=== PATIENT | female | born 1955 | race Caucasian/White ===

== ENCOUNTER 2017-11-19 11:59 | Inpatient (IN) ==
[2017-11-19] MEDS ORDERED: Naloxone 0.4 MG/ML INJ IVP PRN (16:31)
[2017-11-19] MEDS ORDERED: Nitroglycerin 0.4 MG TAB.SUBL SL SCH (16:32)
[2017-11-19] MEDS ORDERED: *HR* Heparin 5,000 UNIT/ML VIAL IVP PRN (16:35)
[2017-11-19] MEDS ORDERED: Heparin 25,000 UNIT/500 ML D5W 25,000 UNIT/500 ML BAG IVC SCH (16:45)
[2017-11-19 17:21] LABS: Hematocrit 39.9 % (35.3-44.9); Hemoglobin 13.5 g/dL (11.5-15.4); Mean Corpuscular HGB Conc 33.8 g/dL (31.6-35.5); Mean Corpuscular Hemoglobin 29.5 pg (28.0-33.3); Mean Corpuscular Volume 87.3 fL (83.0-100.0); Mean Platelet Volume 11.1 fL (9.4-12.4); Platelet Count 278 K/mcL (140-400); Red Blood Count 4.57 M/mcL (3.82-4.97); Red Cell Distribution Width 13.6 % (11.5-14.5)
[2017-11-19 17:41] LABS: Heparin anti-factor XA UFH 0.17 IU/mL (0.30-0.70); INR 0.9; Prothrombin Time 9.6 Seconds (9.4-12.1)
[2017-11-19] MEDS ORDERED: Isovue-370 500 ML INFUS..BTL IV ONE (17:45)
[2017-11-19] MEDS ORDERED: D5% in Water 1,000 ML IVC PRN (17:49)
[2017-11-19] MEDS ORDERED: Dextrose Gel 15 GM/37.5 ML TUBE PO PRN ×2 (17:49)
[2017-11-19] MEDS ORDERED: *HR* Dextrose 50 % in Water (Syg) 50 ML SYRINGE IVP PRN (17:49)
[2017-11-19] MEDS ORDERED: Nitroglycerin 0.4 MG TAB.SUBL SL PRN (17:50)
[2017-11-19] MEDS: *HR* Heparin 5,000 UNIT/ML VIAL IVP PRN (18:54)
[2017-11-19] MEDS ORDERED: Nitroglycerin 25 MG/250 ML INFUS..BTL IVC SCH (19:15)
--- NOTE | 2017-11-19 20:06 | Internal Med History&Physical ---
Date of Encounter: 11/19/17 Time of Encounter: 17:30 Internal Medicine - H&P: HPI Chief complaint: Chest pain Admitted From: Hospital to Hospital Transfer Plans for Post Hospital Care: Home History of present illness: Ms. Lacey is a 62 year old female with hx of CAD transferred from [facility] due to chest pain with elevated troponin. Ms Lacey stated she developed tongue numbness and tingling this AM in the shower. She then noted neck pain that went into her shoulder and then to her left arm. She took two nitro with some relief. She had no nausea but said her face was flushed. No dyspnea now but has been having MAHONEY. She also has been swelling and has had weight gain. At the present time she still has some residual pain in her L shoulder area. No dyspnea. She also reports some upper extremity and face swelling and relates that she has a hx of "tumor" in chest. Past Med Surg Social Fam HX - Past Medical History Source: patient Medical history: coronary artery disease, diabetes, hyperlipidemia Additional medical history: htn. cad. hld. gerd. type 2 dm. ventral incisional hernia. morbid obesity Psychiatric history: no psych history - Past Surgical History Surgical History: angioplasty/stent, other Additional surgical history: 3 cardiac stents - Social History Smoking Status: Never smoker Smokeless Tobacco Status: No Alcohol use: none Drug use: none - Family History Mother Living Status: Age at : 73 Hx Family Cardiac Disorders: Yes (Angina, HTN, CVA) Hx Family Endocrine Disorder: Yes (Diabetes) Father Living Status: Age at : 70 Hx Family Cardiac Disorders: Yes (OH, HTN, HLD, OH at 42, 58,70) Internal Medicine - H&P: Meds Acetaminophen [Tylenol] 650 mg PO Q6HR PRN 06/12/17 [History] Albuterol Sulfate [Albuterol Inhaler] 2 puff IH DAILY PRN 06/12/17 [History] Atorvastatin Calcium [Lipitor] 20 mg PO HS 06/12/17 [History] Biotin 1 mg PO DAILY 06/12/17 [History] Cholecalciferol (D-3) [Vitamin D] 50,000 unit PO MO 06/12/17 [History] Clopidogrel [Plavix] 75 mg PO DAILY 06/12/17 [History] Fluticasone Propionate Nasal [Flonase] 1 spr NS DAILY 06/12/17 [History] Furosemide [Lasix] 20 mg PO DAILY 06/12/17 [History] Glimepiride [Amaryl] 2 mg PO 0800 06/12/17 [History] Loperamide [Imodium] 2 mg PO AD PRN MDD MAX 6 TAB PER 24 HOURS 06/12/17 [History ] Losartan [Cozaar] 25 mg PO DAILY 06/12/17 [History] Metformin HCl [Fortamet] 1,000 mg PO BID 06/12/17 [History] Mometasone/Formoterol [Dulera 100 Mcg/5 Mcg Inhaler] 1 puff IH DAILY 06/12/17 [ History] Nitroglycerin [Nitrostat] 0.4 mg SL Q5-6MIN PRN 06/12/17 [History] [place]-3/Dha/Epa/Fish Oil [Fish Oil 1,000 mg Softgel] 1 cap PO DAILY 06/12/17 [ History] Omeprazole 20 mg PO DAILY 06/12/17 [History] Potassium Chloride [K-Tab ER] 20 meq PO DAILY 06/12/17 [History] Triamterene/Hydrochlorothiazid [Triamterene-Hctz 75-50 mg Tab] 1.5 tab PO DAILY 06/12/17 [History] Ubidecarenone [Coenzyme Q-10] 200 mg PO DAILY 06/12/17 [History] Verapamil HCl [Verelan Pm] 200 mg PO DAILY 06/12/17 [History] Isosorbide MONOnitrate (24 HR) [Imdur] 30 mg PO DAILY 11/19/17 [History] Xyzal 5 mg PO DAILY 11/19/17 [History] 3 Allergy/AdvReac Type Severity Reaction Status Date / Time metoprolol Allergy Difficulty Verified 11/19/17 14:38 Breathing morphine Allergy Swelling Verified 11/19/17 14:38 of Lip/Tongue/Throat propoxyphene [From Darvon] Allergy Itching Verified 11/19/17 14:38 Sulfa (Sulfonamide Allergy Blister Verified 11/19/17 14:38 Antibiotics) adhesive tape AdvReac Itching Verified 06/12/17 09:13 All Systems PM: A 10-system review of systems was performed and is negative for pertinent findings except as documented above in the HPI. - Constitutional Constitutional: as per HPI, fatigue, malaise, weight gain - EENT Eyes: no change in vision, no loss of vision Ears: no decreased hearing Nose, mouth and throat: no dry mouth, no sinus pain - Cardiovascular Cardiovascular ROS IM: chest pain, dyspnea, dyspnea on exertion, edema - Respiratory Respiratory: dyspnea, dyspnea on exertion, no wheezing, no chest congestion - Gastrointestinal Gastrointestinal: no abdominal pain, no diarrhea, no melena, no vomiting - Genitourinary Genitourinary: no dysuria, no nocturia, no urinary urgency - Musculoskeletal Musculoskeletal ROS IM: no joint swelling, no stiffness - Integumentary Integumentary IM: no erythema, no rash - Neurological Neurological ROS: tingling, no focal weakness, no memory loss - Endocrine Endocrine IM: no cold intolerance, no flushing - Hematologic/Lymphatic Hematologic/Lymphatic: no easy bleeding - Allergic/Immunologic Allergic/Immunologic: no throat swelling, no wheezing - Constitutional Vitals: Temp Pulse Resp BP Pulse Ox 97.8 F 84 15 135/85 97 11/19/17 16:02 11/19/17 16:02 11/19/17 16:02 11/19/17 16:02 11/19/17 16:02 General appearance: Present: A&O X 3, pleasant, answers questions appropriately - Head Head exam: Present: normocephalic - Eye Eye exam: Present: EOMI, conjuntiva pink - ENT ENT exam: Present: mucous membranes moist - Neck Neck exam general surgery: Present: normal inspection. Absent: thyromegaly - Respiratory Respiratory exam: Present: CTAB. Absent: rales, rhonchi, wheezes - Cardiovascular Cardiovascular exam: Present: RRR. Absent: tachycardia - GI/Abdominal GI/Abdominal exam: Present: normal bowel sounds, soft. Absent: mass, tenderness - Extremities Exam Extremities exam: Present: pedal edema, tenderness, warm - Neurological Exam Neurological exam: Present: alert, oriented X3, no focal deficits - Psychiatric Psychiatric exam: Present: normal affect, normal mood - Skin Skin exam: Present: dry, warm. Absent: rash Internal Med - H&P Results - Labs CBC & Chem 7: 11/19/17 17:05 Labs: Short CBC 11/19/17 Range/Units 17:05 WBC 12.0 H (4.3-11.1) K/mcL Hgb 13.5 (11.5-15.4) g/dL Hct 39.9 (35.3-44.9) % Plt Count 278 (140-400) K/mcL Cardiac Enzymes 11/19/17 Range/Units 17:05 Troponin I 0.46 H* (< 0.04) ng/mL - Impressions ITS Impressions Chest CTA 11/19/17 17:45 IMPRESSION: No evidence of pulmonary embolism or acute pulmonary abnormality. D/ / Nigel Hollins MD / Nigel Hollins MD Interpreting Provider: Nigel Hollins MD Head CT 11/19/17 17:46 IMPRESSION: No acute intracranial abnormality. D/ / Andrea Wick MD / Andrea Wick MD Interpreting Provider: Andrea Wick MD - VTE Reasons for not Prescribing Prophylaxis: Not indicated-Anticoagulated or INR therapeutic - Assessment and plan (1) NSTEMI (non-ST elevated myocardial infarction) Current Visit: Yes Status: Acute Assessment and plan: Pt with typical chest pain this AM. Prior hx of stents in 2013. Cath in 2016 with 70% lesion. Admit to med tele. IV heparin IV nitro for pain Troponins NPO midnight Cannot take ASA. Currently on plavix Statin Cardiology consult. Pt high risk due to potential for worsening cardiac status. (2) CAD (coronary artery disease) Current Visit: Yes Status: Chronic Assessment and plan: See above Qualifiers: Coronary Disease-Associated Artery/Lesion type: [place] artery [place] vs. transplanted heart: [place] heart Associated angina: with unstable angina Qualified Code(s): I25.110 - Atherosclerotic heart disease of [place] coronary artery with unstable angina pectoris (3) Neuro-endocrine cancer Current Visit: Yes Status: Chronic Assessment and plan: Has hx of neuroendocrine tumor. Not all resected. Follows at [facility]. (4) Hyperlipemia, mixed Current Visit: Yes Status: Chronic Assessment and plan: Check lipids in AM. (5) Diabetes Current Visit: Yes Status: Chronic Assessment and plan: Monitor blood sugars and cover with SSI. Qualifiers: Diabetes mellitus type: type 2 Diabetes mellitus detention insulin use: without terminal clerk use Diabetes mellitus complication status: without complication Qualified Code(s): E11.9 - Type 2 diabetes mellitus without complications - Time Spent With Patient Total time spent is greater than 50% in coordination of care (as documented) at patient's floor/unit and/or counseling patient:
[2017-11-19] MEDS: Insulin LISPRO 300 UNITS/3 ML VIAL SQ SCH (21:22)
[2017-11-19] MEDS: Ipratropium/Albuterol Neb 3 ML IH SCH (22:34)
[2017-11-20 01:12] LABS: Basophils % 0.3 %; Eosinophils % 0.1 %; Hematocrit 37.5 % (35.3-44.9); Hemoglobin 12.5 g/dL (11.5-15.4); Immature Granulocytes % 0.6 % (0-4); Lymphocytes # 1.2 K/mcL (0.6-4.6); Lymphocytes % 12.1 %; Mean Corpuscular HGB Conc 33.3 g/dL (31.6-35.5); Mean Corpuscular Hemoglobin 29.5 pg (28.0-33.3); Mean Corpuscular Volume 88.4 fL (83.0-100.0); Monocytes # 0.5 K/mcL (0.0-1.3); Monocytes % 5.2 %; Neutrophils # 8.2 K/mcL (1.6-8.9); Platelet Count 259 K/mcL (140-400); Red Blood Count 4.24 M/mcL (3.82-4.97); Red Cell Distribution Width 13.8 % (11.5-14.5); Segmented Neutrophils % 81.7 %
[2017-11-20 01:46] LABS: BUN/Creatinine Ratio 22 (6-26); Blood Urea Nitrogen 14 mg/dL (8-23); Calcium 9.7 mg/dL (8.6-10.3); Carbon Dioxide 22 mEq/L (23-29); Chloride 101 mEq/L (98-107); Chol/HDL Ratio 3.6 (0-4.9); Cholesterol 170 mg/dL (< 200); Glucose 168 mg/dL (70-105); HDL Cholesterol 47 mg/dL (40-59); LDL Cholesterol,Calculated 71 mg/dL (0-99); Magnesium 1.7 mg/dL (1.6-2.6); Osmolality,Calculated 286 (280-300); Potassium 3.6 mEq/L (3.5-5.1); Sodium 136 mEq/L (136-145); Triglycerides 262 mg/dL (< 150); eGFR For Non-African Americans > 60 (> 60)
[2017-11-20] MEDS: Ipratropium/Albuterol Neb 3 ML IH SCH ×4 (04:39→22:12)
--- NOTE | 2017-11-20 08:26 | Electrocardiograph Report ---
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
--- NOTE | 2017-11-20 08:58 | Internal Med Progress Note ---
<Todd Gunderson - Last Filed: 11/20/17 17:23> Hospitalist Progress Note - Encounter Date of Encounter: 11/20/17 - Exam Vitals: Temp Pulse Resp BP Pulse Ox 97.9 F 88 16 167/94 98 11/20/17 16:00 11/20/17 16:00 11/20/17 16:41 11/20/17 16:00 11/20/17 16:41 - Assessment and Plan (1) NSTEMI (non-ST elevated myocardial infarction) Current Visit: Yes Status: Acute (2) CAD (coronary artery disease) Current Visit: Yes Status: Chronic (3) Neuro-endocrine cancer Current Visit: Yes Status: Chronic (4) Hyperlipemia, mixed Current Visit: Yes Status: Chronic (5) Diabetes Current Visit: Yes Status: Chronic - Time Spent with Patient Total time spent is greater than 50% in coordination of care (as documented) at patient's floor/unit and/or counseling patient: Internal Medicine: Result - Labs CBC & Chem 7: 11/20/17 00:47 11/20/17 00:47 Labs: Short CBC 11/19/17 11/20/17 Range/Units 17:05 00:47 WBC 12.0 H 10.1 (4.3-11.1) K/mcL Hgb 13.5 12.5 (11.5-15.4) g/dL Hct 39.9 37.5 (35.3-44.9) % Plt Count 278 259 (140-400) K/mcL Neutrophils # 8.2 (1.6-8.9) K/mcL BMP 11/20/17 00:47 Sodium 136 Potassium 3.6 Chloride 101 Carbon Dioxide 22 L BUN 14 Creatinine 0.65 Glucose 168 H Calcium 9.7 Cardiac Enzymes 11/19/17 11/20/17 11/20/17 Range/Units 17:05 00:47 06:33 Troponin I 0.46 H* 0.21 H* 0.22 H* (< 0.04) ng/mL - ABG Interpretation ABG results: PT/INR, D-dimer PT 9.6 Seconds (9.4-12.1) 11/19/17 17:05 - Impressions Impressions Chest CTA 11/19/17 17:45 IMPRESSION: No evidence of pulmonary embolism or acute pulmonary abnormality. D/ / Nigel Hollins MD / Nigel Hollins MD Interpreting Provider: Nigel Hollins MD Head CT 11/19/17 17:46 IMPRESSION: No acute intracranial abnormality. D/ / Andrea Wick MD / Andrea Wick MD Interpreting Provider: Andrea Wick MD Consult Discharge Plan - Plan Referrals: Kimberly Tam CNP [Primary Care Provider] - - Attending Attestation I examined this patient and my medical decision-making was reviewed with the Resident Physician on 11/20/17. I agree with the documented findings, disposition and treatment plan as described except to the extent set forth below. Ms Lacey is currently admitted for acute NSTEMI. She is to have LHC today. She remains moderate to high risk due to potential for worsening clinical status. Ms Lacey had improvement of her pain last night but it has recurred this AM. She is going to heart cath. No fever or chills. No nausea or vomiting. Tolerating meds at this time. Exam alert Comfortable Mucus membranes dry Heart reg Lungs clear at this time Abd soft and nontender Edema present. I/P 1. Acute NSTEMI - C today 2. CAD Further diagnoses and plan as above. <Jameson Burton P - Last Filed: 11/20/17 17:38> Hospitalist Progress Note - Encounter Date of Encounter: 11/20/17 Time of Encounter: 08:30 - Subjective Interval History: Today 2nd DOA . She is a 62 year old female with HTN/ DM-2 ,CAD, Hyperlipidemia , obesity , transferred from [facility] for burning and dull type of chest pain started at 6 AM yesterday . She has elevate troponin , 7-8/10 in intensity, radiates to neck and left shoulder and arm , lasted for about 20 minutes, mild nausea, but not vomiting, dizziness, palpitation,loss of conscoiousness , relieved a little bit with nitro. Her blood pressure during that time was 160/101 . She has burning pain in oropharayx and throat and difficulty while swallowing She took two nitro with some relief . She denies any cough, leg swelling, fever, vomiting . She states that she feels her left arm weak,cold and a little bit heavy ? 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 She has been feeling fatigue since last thursday , but went to her job till last Thursday. She has elevated Troponin 0.46 - 0.21.Cardiology consultation has been ordered. Her BP 142/85 , 83/minutes, 97.7F .TLC 8.2, BUN14, creatinine 0.65 , Na +136, K3.6 She has been planned for cardiac catheterization today. - Exam Vitals: Temp Pulse Resp BP Pulse Ox 97.4 F L 82 16 139/84 97 11/20/17 07:38 11/20/17 07:38 11/20/17 07:38 11/20/17 07:38 11/20/17 07:38 Exam: General appearance: Present: A&O X 3, pleasant, answers questions appropriately - Head Head exam: Present: normocephalic - Eye Eye exam: Present: EOMI, no pale - ENT ENT exam: Present: mucous membranes moist - Neck Neck exam general surgery: Present: normal inspection. Absent: thyromegaly - Respiratory Respiratory exam: equal air entry both side , normal chest expansion, Absent: rales, rhonchi, wheezes - Cardiovascular Cardiovascular exam: Normal rate and rhythm, normal S1S2 , no rub ,no JVD , no other added sound - GI/Abdominal GI/Abdominal exam: Present: normal bowel sounds, soft. Absent: mass, tenderness - Extremities Exam Extremities exam: Present: pedal edema, tenderness, warm - Neurological Exam Neurological exam: Present: alert, oriented X3, Muscle stregth in lower extremities normal , upper extremities normal except director radiation oncology strength in left hand 4/5 - Psychiatric Psychiatric exam: Present: normal affect, normal mood - Skin Skin exam: Present: dry, warm. Absent: rash - Assessment and Plan (1) NSTEMI (non-ST elevated myocardial infarction) Current Visit: Yes Status: Acute Assessment and Plan: patient has many risk factors with previous CAD Chest pain 8-9 this morning relieved a little bit with wit NitroTroponin: 0.46- 0.32 Patient plavix , IV heparin, nitro BP 142/85 , PT 9.6, INR 0.9 Cardiology consulted (2) CAD (coronary artery disease) Current Visit: Yes Status: Chronic Assessment and Plan: She has multiple risk factor with previous h/o CAD 2016 Cardiac catheterization: 70 % stenosis Cardiology consulted Troponin 0.46- 0.32 She is on heparin , plavix, statin and nitro (3) Neuro-endocrine cancer Current Visit: Yes Status: Chronic Assessment and Plan: Has hx of neuroendocrine tumor. Not all resected. Follows at [facility] (4) Hyperlipemia, mixed Current Visit: Yes Status: Chronic Assessment and Plan: Her recent lipid profile ;TG 262, Cholesterol 168, LDL 71 She is on statin We will monitor . (5) Diabetes Current Visit: Yes Status: Chronic Assessment and Plan: Monitor blood sugars and cover with SSI. Her latest blood sugar is 168 - Time Spent with Patient Total time spent is greater than 50% in coordination of care (as documented) at patient's floor/unit and/or counseling patient: Internal Medicine: Result - Labs CBC & Chem 7: 11/20/17 00:47 11/20/17 00:47 Labs: Short CBC 11/19/17 11/20/17 Range/Units 17:05 00:47 WBC 12.0 H 10.1 (4.3-11.1) K/mcL Hgb 13.5 12.5 (11.5-15.4) g/dL Hct 39.9 37.5 (35.3-44.9) % Plt Count 278 259 (140-400) K/mcL Neutrophils # 8.2 (1.6-8.9) K/mcL BMP 11/20/17 00:47 Sodium 136 Potassium 3.6 Chloride 101 Carbon Dioxide 22 L BUN 14 Creatinine 0.65 Glucose 168 H Calcium 9.7 Cardiac Enzymes 11/19/17 11/20/17 11/20/17 Range/Units 17:05 00:47 06:33 Troponin I 0.46 H* 0.21 H* 0.22 H* (< 0.04) ng/mL - ABG Interpretation ABG results: PT/INR, D-dimer PT 9.6 Seconds (9.4-12.1) 11/19/17 17:05 - Impressions Impressions Chest CTA 11/19/17 17:45 IMPRESSION: No evidence of pulmonary embolism or acute pulmonary abnormality. D/ / Nigel Hollins MD / Nigel Hollins MD Interpreting Provider: Nigel Hollins MD Head CT 11/19/17 17:46 IMPRESSION: No acute intracranial abnormality. D/ / Andrea Wick MD / Andrea Wick MD Interpreting Provider: Andrea Wick MD - VTE Reasons for not Prescribing Prophylaxis: Not indicated-Anticoagulated or INR therapeutic <Todd Gunderson A - Last Filed: 11/20/17 17:23> (2) CAD (coronary artery disease) Qualifiers: Coronary Disease-Associated Artery/Lesion type: [place] artery [place] vs. transplanted heart: [place] heart Associated angina: with unstable angina Qualified Code(s): I25.110 - Atherosclerotic heart disease of [place] coronary artery with unstable angina pectoris (5) Diabetes Qualifiers: Diabetes mellitus type: type 2 Diabetes mellitus terminal worker insulin use: without retirement use Diabetes mellitus complication status: without complication Qualified Code(s): E11.9 - Type 2 diabetes mellitus without complications <Jameson Burton P - Last Filed: 11/20/17 17:38> (2) CAD (coronary artery disease) Qualifiers: Coronary Disease-Associated Artery/Lesion type: [place] artery [place] vs. transplanted heart: [place] heart Associated angina: with unstable angina Qualified Code(s): I25.110 - Atherosclerotic heart disease of [place] coronary artery with unstable angina pectoris (5) Diabetes Qualifiers: Diabetes mellitus type: type 2 Diabetes mellitus terminal worker insulin use: without retirement use Diabetes mellitus complication status: without complication Qualified Code(s): E11.9 - Type 2 diabetes mellitus without complications
[2017-11-20] MEDS ORDERED: Isosorbide MONOnitrate (24 HR) 30 MG TAB.ER.24H PO SCH (09:00)
--- NOTE | 2017-11-20 09:24 | Cardiology Consult Note ---
<Yaniv Logan R - Last Filed: 11/20/17 09:52> Date of Encounter: 11/20/17 Time of Encounter: 09:22 Assessment and Plan (1) NSTEMI (non-ST elevated myocardial infarction) Current Visit: Yes Status: Acute Troponin 0.46, 0.21, 0.22. Symptoms of throat fullness, tongue numbness, left neck pain radiating to left arm/jaw, chest pressure. Symptoms worsened with exertion, associated with fatigue. Symptoms similar to prior anginal equivalent. Initiialy achieved relief with nitro. Currently on nitro gtt and CP has recurred 06/13. EKG SR, no acute changes. [facility] 06/2017 moderate CAD, FFR LAD 0.8, borderline significant. FFR 0.93 1st marginal. Recommend LH in setting of NSTEMI. R/B/A discussed. Pt agrees to proceed. LHC today. TTE to evaluate structure and function. On heparin gtt. On Plavix, ARB, and statin as home meds. Reports hx of tongue/ lip edema to BB--will not start. Will start 81mg ASA--reports hx of GI bleed in 2013 while on ASA, Plavix and Ibuprofen. Willing to try ASA 81mg and instructed to avoid NSAIDS. (2) CAD (coronary artery disease) Current Visit: Yes Status: Chronic Hx PCI in 2013. Recent [facility] 06/2017 moderate disease, FFR LAD borderline, no intervention. ASA, Plavix, Statin, ARB, nitrates. LHC today as above. Qualifiers: Coronary Disease-Associated Artery/Lesion type: [place] artery [place] vs. transplanted heart: [place] heart Associated angina: with unstable angina Qualified Code(s): I25.110 - Atherosclerotic heart disease of [place] coronary artery with unstable angina pectoris Discussion w patient/family: The assessment and plan as outlined above was discussed with the patient and/or family members who expressed understanding and agreement. All questions were answered. Thank you for involving us in the care of your patient. Please call with any questions. I will discuss all the above with Dr. Acosta and make changes as necessary. History of Present Illness Consult date: 11/20/17 Requesting physician: Todd Gunderson Consult reason: NSTEMI Chief complaint: Chest/jaw/arm pain History of present illness: Ms. Lacey is a 62 year old female with PMH HTN, DM, CAD with hx PCI, HLD, GI bleed requiring PRBC, neuroendocrine carcinoma s/p bowel resection (2006), GERd that was transferred from [facility] due to chest pain with elevated troponin. Pt states she developed tongue tingling and throat fullness/burning yesterday AM in the shower. She then noticed left sided neck pain that radiated into her left shoulder and then to her left arm. She took two nitro with some relief. At some point she did notice chest pressure as well. Symptoms worsened on exertion. Reports LE edema and exertional dyspnea. She states over the past couple months she has noticed intermittent chest/arm/shoulder pain, but was attributing it to musculoskeletal pain. Pain resolved last night, but since recurred. Current CP 06/13. Recent CV testing: [facility] 06/12/17: Moderate atherosclerotic coronary artery disease by angiography. The left ventricle is normal and has normal contractility EF 65%. FFR Measurement: 0.8 (LAD) borderline significant but no lesion identified for intervention & 0.93 (1st Marginal) HTN. Past Med Surg Social Fam HX - Past Medical History Medical history: coronary artery disease, diabetes, hyperlipidemia Additional medical history: htn. cad. hld. gerd. type 2 dm. ventral incisional hernia. morbid obesity Psychiatric history: no psych history - Past Surgical History Surgical History: angioplasty/stent, other Additional surgical history: 3 cardiac stents - Social History Smoking Status: Never smoker Smokeless Tobacco Status: No Alcohol use: none Drug use: none - Family History Mother Living Status: Age at : 73 Hx Family Cardiac Disorders: Yes (Angina, HTN, CVA) Hx Family Endocrine Disorder: Yes (Diabetes) Father Living Status: Age at : 70 Hx Family Cardiac Disorders: Yes (LA, HTN, HLD, LA at 42, 58,70) Medications and Allergies Acetaminophen [Tylenol] 650 mg PO Q6HR PRN 06/12/17 [History] Albuterol Sulfate [Albuterol Inhaler] 2 puff IH DAILY PRN 06/12/17 [History] Atorvastatin Calcium [Lipitor] 20 mg PO HS 06/12/17 [History] Biotin 1 mg PO DAILY 06/12/17 [History] Cholecalciferol (D-3) [Vitamin D] 50,000 unit PO MO 06/12/17 [History] Clopidogrel [Plavix] 75 mg PO DAILY 06/12/17 [History] Fluticasone Propionate Nasal [Flonase] 1 spr NS DAILY 06/12/17 [History] Furosemide [Lasix] 20 mg PO DAILY 06/12/17 [History] Glimepiride [Amaryl] 2 mg PO 0800 06/12/17 [History] Loperamide [Imodium] 2 mg PO AD PRN MDD MAX 6 TAB PER 24 HOURS 06/12/17 [History ] Losartan [Cozaar] 25 mg PO DAILY 06/12/17 [History] Metformin HCl [Fortamet] 1,000 mg PO BID 06/12/17 [History] Mometasone/Formoterol [Dulera 100 Mcg/5 Mcg Inhaler] 1 puff IH DAILY 06/12/17 [ History] Nitroglycerin [Nitrostat] 0.4 mg SL Q5-6MIN PRN 06/12/17 [History] [place]-3/Dha/Epa/Fish Oil [Fish Oil 1,000 mg Softgel] 1 cap PO DAILY 06/12/17 [ History] Omeprazole 20 mg PO DAILY 06/12/17 [History] Potassium Chloride [K-Tab ER] 20 meq PO DAILY 06/12/17 [History] Triamterene/Hydrochlorothiazid [Triamterene-Hctz 75-50 mg Tab] 1.5 tab PO DAILY 06/12/17 [History] Ubidecarenone [Coenzyme Q-10] 200 mg PO DAILY 06/12/17 [History] Verapamil HCl [Verelan Pm] 200 mg PO DAILY 06/12/17 [History] Isosorbide MONOnitrate (24 HR) [Imdur] 30 mg PO DAILY 11/19/17 [History] Xyzal 5 mg PO DAILY 11/19/17 [History] 3 Allergy/AdvReac Type Severity Reaction Status Date / Time metoprolol Allergy Difficulty Verified 11/19/17 14:38 Breathing morphine Allergy Swelling Verified 11/19/17 14:38 of Lip/Tongue/Throat propoxyphene [From Darvon] Allergy Itching Verified 11/19/17 14:38 Sulfa (Sulfonamide Allergy Blister Verified 11/19/17 14:38 Antibiotics) adhesive tape AdvReac Itching Verified 06/12/17 09:13 All Systems Review: The remainder of the systems were reviewed and are negative - Constitutional Constitutional: fatigue - Cardiovascular Cardiovascular: as per HPI, chest pain at rest, chest pain with exertion, dyspnea on exertion, radiating jaw, neck or arm pain, leg edema - Respiratory Respiratory: dyspnea Physical Examination Vital Signs, Last 4 Hours Temp Pulse Resp BP Pulse Ox 11/20/17 07:38 97.4 F L 82 16 139/84 97 Vital Signs Temp Pulse Resp BP Pulse Ox 11/20/17 07:38 97.4 F L 82 16 139/84 97 11/20/17 04:00 97.7 F 83 14 140/85 97 11/20/17 00:00 97.7 F 94 14 123/81 98 11/19/17 22:36 14 11/19/17 20:00 97.7 F 81 14 115/63 97 11/19/17 16:02 97.8 F 84 15 135/85 97 11/19/17 13:39 97.8 F 79 15 161/99 98 Intake and Output 11/19/17 11/20/17 11/20/17 23:59 07:59 15:59 Intake Total 420 / 420 163 / 163 33 / 33 Output Total 500 / 500 1800 / 1800 400 / 400 Balance -80 / -80 -1637 / -1637 -367 / -367 Intake: IV Fluids 163 / 163 33 / 33 Heparin 25,000 UNIT/500 ML D5W 163 / 163 25,000 unit In 500 ml @ 9.6 UNIT/KG/HR 20.064 mls/hr IVC . Q24H ALFRED Rx#:[id number] Nitroglycerin Premix 25 MG/250 33 / 33 ML 25 mg In 250 ml @ 5 MCG/MIN 3 mls/hr IVC .Q24H ALFRED Rx#: [id number] Oral 420 / 420 0 / 0 Output: Urine 500 / 500 1800 / 1800 400 / 400 Other: Weight 104.5 kg 104.7 kg Blood Glucose* 159 117 Patient Weight 11/20/17 23:59 Weight 104.7 kg General: Conversant, No Apparent Distress HEENT: Atraumatic, Normocephaly, Mucus Membranes Moist Neck: No JVD, Normal carotid pulses Cardiac: Reg Rate and Rhythm, Normal S1 and S2, No Murmur Lungs: Normal Breath Sounds, No Wheeze, Rales, Rhonchi Neuro: Alert and responsive, No focal deficits noted Abdomen: Soft, Non-Tender Skin: No rashes noted on visualized skin Musculoskeletal: No Chest Wall Tenderness Extremities: No Clubbing, No Cyanosis, Other (mild LE edema) Results 11/20/17 00:47 11/20/17 00:47 Lab Results 11/19/17 11/19/17 11/19/17 17:05 17:05 17:05 WBC 12.0 H Hgb 13.5 Hct 39.9 Plt Count 278 INR 0.9 Sodium Potassium Chloride Carbon Dioxide BUN Creatinine Glucose Calcium Magnesium Troponin I 0.46 H* 11/20/17 11/20/17 11/20/17 00:47 00:47 00:47 WBC 10.1 Hgb 12.5 Hct 37.5 Plt Count 259 INR Sodium 136 Potassium 3.6 Chloride 101 Carbon Dioxide 22 L BUN 14 Creatinine 0.65 Glucose 168 H Calcium 9.7 Magnesium 1.7 Troponin I 0.21 H* 11/20/17 06:33 WBC Hgb Hct Plt Count INR Sodium Potassium Chloride Carbon Dioxide BUN Creatinine Glucose Calcium Magnesium Troponin I 0.22 H* Short CBC 11/20/17 11/19/17 Range/Units 00:47 17:05 WBC 10.1 12.0 H (4.3-11.1) K/mcL Hgb 12.5 13.5 (11.5-15.4) g/dL Hct 37.5 39.9 (35.3-44.9) % Plt Count 259 278 (140-400) K/mcL Neutrophils # 8.2 (1.6-8.9) K/mcL BMP 11/20/17 Range/Units 00:47 Sodium 136 (136-145) mEq/L Potassium 3.6 (3.5-5.1) mEq/L Chloride 101 (98-107) mEq/L Carbon Dioxide 22 L (23-29) mEq/L BUN 14 (8-23) mg/dL Creatinine 0.65 (0.60-1.20) mg/dL Glucose 168 H (70-105) mg/dL Calcium 9.7 (8.6-10.3) mg/dL Cardiac Enzymes 11/20/17 11/20/17 11/19/17 Range/Units 06:33 00:47 17:05 Troponin I 0.22 H* 0.21 H* 0.46 H* (< 0.04) ng/mL Impressions Chest CTA 11/19/17 17:45 IMPRESSION: No evidence of pulmonary embolism or acute pulmonary abnormality. D/ / Nigel Hollins MD / Nigel Hollins MD Interpreting Provider: Nigel Hollins MD Head CT 11/19/17 17:46 IMPRESSION: No acute intracranial abnormality. D/ / Andrea Wick MD / Andrea Wick MD Interpreting Provider: Andrea Wick MD Active Medications Acetaminophen (Tylenol) 650 mg PO Q6HR PRN PRN Reason: Pain Stop: 05/21/18 16:33 Albuterol/Ipratropium (Duoneb) 3 ml IH [id number] ALFRED Stop: 05/21/18 22:01 Last Admin: 11/20/17 04:39 Dose: Not Given Clopidogrel Bisulfate (Plavix) 75 mg PO DAILY ALFRED Stop: 05/22/18 09:01 Dextrose/Water (Dextrose 50% (Syg)) 25 ml IVP AD PRN PRN Reason: Hypoglycemia Stop: 05/21/18 17:50 Fluticasone Propionate (Flonase) 50 mcg NS DAILY ALFRED PRN Reason: Protocol Stop: 05/22/18 09:01 Furosemide (Lasix) 20 mg PO DAILY ALFRED Stop: 05/22/18 09:01 Glucagon (Glucagen) 1 mg IM ONCE PRN PRN Reason: Hypoglycemia Stop: 05/21/18 17:50 Glucose (Gluctose) 15 gm PO ONCE PRN PRN Reason: Hypoglycemia Stop: 05/21/18 17:50 Glucose (Gluctose) 30 gm PO ONCE PRN PRN Reason: Hypoglycemia Stop: 05/21/18 17:50 Heparin Sodium (Porcine) (Heparin) 4,000 unit IVP Q6HR PRN PRN Reason: SEE COMMENTS Stop: 05/21/18 16:36 Heparin Sodium (Porcine) (Heparin) 2,000 unit IVP Q6H PRN PRN Reason: SEE COMMENTS Stop: 02/15/19 16:36 Last Admin: 11/19/17 18:54 Dose: 2,000 unit Heparin Sodium/Dextrose (Heparin 25,000 Unit/500 Ml D5w) 25,000 unit in 500 mls @ 20.064 mls/hr IVC .Q24H ALFRED; 9.6 UNIT/KG/HR PRN Reason: Protocol Stop: 05/21/18 16:46 Last Titration: 11/20/17 01:43 Dose: 11.6 unit/kg/hr, 24.244 mls/hr Dextrose (Dextrose 5%) 1,000 mls @ 100 mls/hr IVC .Q10H PRN PRN Reason: HYPOGLYCEMIA Stop: 05/21/18 17:50 Nitroglycerin (Nitroglycerin Premix 25 Mg/250 Ml) 25 mg in 250 mls @ 3 mls/hr IVC .Q24H ALFRED; 5 MCG/MIN PRN Reason: Protocol Stop: 05/21/18 19:16 Last Titration: 11/20/17 08:49 Dose: 10 mcg/min, 6 mls/hr Insulin Human Lispro (Humalog) 0 units SQ HS ALFRED PRN Reason: Protocol Stop: 05/21/18 21:01 Last Admin: 11/19/17 21:22 Dose: Not Given Insulin Human Lispro (Humalog) 0 units SQ TIDAC ALFRED PRN Reason: Protocol Stop: 05/22/18 07:31 Isosorbide Mononitrate (Imdur) 30 mg PO DAILY ALFRED Stop: 05/22/18 09:01 Loperamide HCl (Imodium) 2 mg PO AD PRN PRN Reason: Loose Stool Stop: 05/21/18 16:33 Losartan Potassium (Cozaar) 25 mg PO DAILY ALFRED PRN Reason: Protocol Stop: 05/22/18 09:01 Naloxone HCl (Narcan) 0.4 mg IVP Q2MIN PRN PRN Reason: SEE COMMENTS Stop: 05/21/18 16:32 Nitroglycerin (Nitroglycerin) 0.4 mg SL Q5MIN PRN PRN Reason: Chest Pain Stop: 05/21/18 16:33 Omeprazole (Prilosec) 20 mg PO DAILY ALFRED Stop: 05/22/18 09:01 Pharmacy Profile Note (Patient Taking Own Medication) 0 each PO DAILY ALFRED Stop: 05/22/18 09:01 Potassium Chloride (Potassium Chloride) 20 meq PO DAILY ALFRED Stop: 05/22/18 09:01 - Imaging and Cardiology Cardiac cath: report reviewed - EKG Interpretation EKG results cardiology: personally reviewed (SR) Consult Discharge Plan - Plan Referrals: Kimberly Tam, ANIMAL SURGEON [Primary Care Provider] - <Hakan Acosta - Last Filed: 11/20/17 12:25> Date of Encounter: 11/20/17 - Attending Attestation I have personally performed a face to face evaluation on this patient. I have reviewed and agree with the care plan. History and Exam by me shows: CC: Neck, chest and arm pain HPI: Pt reports she was in the shower this AM, developed jaw pain, 6/10, associated with shortness of breath, radiated down into left chest and left shoulder, lasted around ten minutes, took a sl ntg with improvement to 3/10, took another sl after ten minutes, pain resolved. She continued to feel tired and washed out, got dressed and went to work, co workers report she looked terrible, referred to ER. She reports jaw, shoulder and chest pain consistent with previous anginal equivalent, same presentation as before last PCI. She reports has been much more fatigued, is tiring much earlier than normal. She is avoiding activities to avoid provoking feeling of fatigue. She is resting comfortably, pain free at present. ROS: reviewed PMH: reviewed PE: pt seen and examined, agree with findings as documented. IMP/Plan: 1. NSTEMI: chest pain and presentation same as previous ischemic events, troponins slightly elevated despite optimal medical tx, discussed options, recommend invasive strategy, risks and benefits discussed, pt elects to proceed with diagnostic catheterization with intervention if indicated later this afternoon. 2. CAD: moderate non obstructive CAD at diagnostic C 06/21, boderline significant LAD lesion at FFR .8 3. Hypertension: not well controlled, will continue to adjust meds post [facility] 4. NIDM: reports fasting blood sugars controlled on current meds. Assessment and Plan Discussion w patient/family: The assessment and plan as outlined above was discussed with the patient and/or family members who expressed understanding and agreement. All questions were answered. Thank you for involving us in the care of your patient. Please call with any questions. History of Present Illness History of present illness: Ms. Lacey is a 62 year old female All Systems Review: The remainder of the systems were reviewed and are negative Physical Examination Vital Signs, Last 4 Hours Resp Pulse Ox 11/20/17 10:45 18 98 Results 11/20/17 00:47 11/20/17 00:47 Lab Results 11/19/17 11/19/17 11/19/17 17:05 17:05 17:05 WBC 12.0 H Hgb 13.5 Hct 39.9 Plt Count 278 INR 0.9 Sodium Potassium Chloride Carbon Dioxide BUN Creatinine Glucose Calcium Magnesium Troponin I 0.46 H* 11/20/17 11/20/17 11/20/17 00:47 00:47 00:47 WBC 10.1 Hgb 12.5 Hct 37.5 Plt Count 259 INR Sodium 136 Potassium 3.6 Chloride 101 Carbon Dioxide 22 L BUN 14 Creatinine 0.65 Glucose 168 H Calcium 9.7 Magnesium 1.7 Troponin I 0.21 H* 11/20/17 06:33 WBC Hgb Hct Plt Count INR Sodium Potassium Chloride Carbon Dioxide BUN Creatinine Glucose Calcium Magnesium Troponin I 0.22 H*
[2017-11-20] MEDS: Insulin LISPRO 300 UNITS/3 ML VIAL SQ SCH ×4 (09:56→21:23)
[2017-11-20] MEDS: Furosemide 20 MG TABLET PO SCH (09:57)
[2017-11-20] MEDS: *HR* Heparin 5,000 UNIT/ML VIAL IVP PRN (10:24)
[2017-11-20] MEDS: Aspirin 81 MG TAB.CHEW PO SCH (11:26)
[2017-11-20] MEDS: Fluticasone Propionate Nasal 50 MCG/SPRAY BOTTLE NS SCH (11:27)
[2017-11-20] MEDS ORDERED: Nitroglycerin 1,000 MCG/10 ML VIAL IV ONE (12:18)
[2017-11-20] MEDS ORDERED: 0.9 % Sodium Chloride 1,000 ML ONE ×2 (12:18→12:33)
[2017-11-20] MEDS ORDERED: *HR* Heparin 10,000 UNIT/10 ML VIAL ONE (12:18)
[2017-11-20] MEDS ORDERED: ISOVUE-370 200 ML INFUS..BTL IV ONE (12:18)
[2017-11-20] MEDS ORDERED: Heparin 1,000 UNITS/500 mL 500 ML ONE (12:18)
--- NOTE | 2017-11-20 12:33 | Pre-Sedation Evaluation ---
Pre-sedation evaluation - Pre-sedation checklist Date of procedure: 11/20/17 Procedure: [facility] Recent Vitals: Last Vital Signs Temp 97.4 F L 11/20/17 07:38 Pulse 82 11/20/17 07:38 Resp 18 11/20/17 10:45 BP 139/84 11/20/17 07:38 Pulse Ox 98 11/20/17 10:45 H&P (including ROS) documented in medical record: Yes Previous reaction to sedatives/anesthetics: No Dietary Status: NPO after Midnight Dentition: full dentition If Yes;: History of difficult intubation ASA Classification *see protocol: CLASS II-Mild systemic disease Plan of Care: Pt appropriate candidate for procedure/moderate/conscious sedation , Risks/benefits of procedure/sedation discussed w/ patient/family Cardiac Registry (Cardio Only) - Functional Capacity Functional Capacity: >=4 METS with symptoms - Clincal Frailty Scale
[2017-11-20] MEDS ORDERED: *HR* FentaNYL (PF) 100 MCG/2 ML VIAL ONE (12:39)
[2017-11-20] MEDS ORDERED: *HR* Midazolam HCl 5 MG/5 ML VIAL IVP ONE (12:39)
--- NOTE | 2017-11-20 13:30 | Invasive Diagnostic Lab Proc ---
Name: Radha Lacey Date of Study: 11/20/2017 Date: 1955 Ht: 61.8in Medical Record#: [id number] Age: 62 Wt: 231.49lb Gender: Female BSA: 2.03 Order #: [id number] BMI: 42.6 Physicians Procedure Physician: Jacques Valencia MD, [facility] Referring MD: Referring MD: Staff Name Position Time In Sites, Mica RT (R) Scrub 12:25 PM Hemal Chiu RT (R) Monitor 12:26 PM Fatuma Albrecht RN Warehouse Assistant 12:26 PM Magen Brown RN Warehouse Assistant 12:26 PM Indications Indication Non-Stemi Procedures Performed Procedure L HRT ARTERY/VENTRICLE ANGIO Pre-Procedure Checklist Informed consent is complete signed and on chart. H&P is on chart. ID band is on and ID verified with patient. Patient NPO for procedure The procedure was described for the patient and questions were answered. Blood Pressure: 170/101 ECG is on chart. Rhythm: NSR Plan of Care Patient will tolerate the procedure without complications. Adequate level of comfort will be maintained. Hemodynamics will remain stable Patient will recover from procedure without complications. Respiratory function will be maintained. Cardiac rhythm will remain stable. Patient temperature will be maintained. Patient and/or family have verbalized understanding of the procedure. Patient Education Chief Complaint/Reason for Test: Cardiac Cath Developmental Category: Adult (18-64 years) Developmentally Appropriate for Age: Yes Learning Barriers: None Education Needs: Procedure Education Method: Verbal Information Taught: Cardiac Cath Educational Evaluation: Able to repeat information Intravenous Access Time IV Size Location DC'd Fluid/Drip Rate Units RN 12:39 PM 20g 1 1/" Patent On Arrival Rt Antecubital 0.9NaCl 25 ml/hr Fatuma Albrecht RN Allergies SULFA (sulfonamide) morphine adhesive tape propoxyphene metoprolol Vital Signs Time BP (mmHg) HR (bpm) O2 Sat. RR (bpm) LOC 12:34 PM 170 / 101 95 100 % 18 5 = Fully awake and oriented or at pre-proc level 12:34 PM / % 4 = Oriented but drowsy 12:49 PM / % 4 = Oriented but drowsy 12:39 PM 170 / 101 105 98 % 14 12:43 PM 160 / 94 97 100 % 17 12:48 PM 159 / 89 94 99 % 14 12:53 PM 152 / 84 93 98 % 15 12:58 PM 165 / 96 97 100 % 17 01:03 PM 152 / 96 103 99 % 13 01:08 PM 156 / 90 109 100 % 17 01:13 PM 162 / 89 97 99 % 19 01:18 PM 156 / 95 96 98 % 16 01:04 PM / % 5 = Fully awake and oriented or at pre-proc level Procedural Medications Time Medication Dose Units Method Given By 12:36 PM Oxygen 2 L/min nasal cannula Fatuma Albrecht RN 12:41 PM Versed 2 mg Intravenous Fatuma Albrecht RN 12:41 PM Fentanyl 50 mcg Intravenous Fatuma Albrecht RN 12:56 PM Versed 1 mg Intravenous Fatuma Albrecht RN 12:56 PM Versed 25 mg Intravenous Fatuma Albrecht RN 12:57 PM Lidocaine 2% 20 ml Subcutaneous Jacques Valencia MD, [facility] ASA Classification: CLASS II- Mild systemic disease (i.e. well-controlled diabetes, hypertension, asthma, cigarette smoking) Kelly Score Preprocedure Postprocedure Activity 2- Moves 4 extremities sustained head lift Activity 2- Moves 4 extremities sustained head lift Circulation 2- SBP +/= 20 points of pre-anesthetic level Circulation 2- SBP +/= 20 points of pre-anesthetic level Consciousness 2- Awake and alert oriented x 3 Consciousness 2- Awake and alert oriented x 3 O2 Saturation 2- Able to maintain O2 satruation of 92% on room air O2 Saturation 2- Able to maintain O2 satruation of 92% on room air Respiratory 2- Able to deep breathe and cough well Respiratory 2- Able to deep breathe and cough well Total Score 10 Total Score 10 Contrast Agent: Isovue Diagnostic Contrast: 77 ml Total Contrast: 77 ml Fluoro Dose: 2198 mGy Procedure Log Time Note Enter By 12:25 PM Patient charges- Angio tray pack, Navilyst 3mm J, Pulse Oximetry and ACIST tubing and transducer [email or web address] 12:25 PM Clinical Presentation: Non-STEMI [email or web address] 12:25 PM Mica Dooley RT (R) Position: Scrub Time in: 12:25 2 12:26 PM Hemal Chiu RT (R) Position: Monitor Time in: 12:2 12:26 PM Fatuma Albrecht RN Position: Warehouse Assistant Time in: :2 12:26 PM Magen Brown RN Position: Warehouse Assistant Time in: 12:[email or web address] 12:33 PM Pt arrived to sanitation laborer 2 at 12:33 [email or web address] 12:33 PM Physician arrived 12:2 12:33 PM Meet and greet completed 2 12:33 PM Sign in performed according to hospital policy. [email or web address] 12:34 PM Procedure start 12:33 [email or web address] 12:34 PM Time: 12:34 Patient comfortable and pain free: Yes [email or web address] 12:34 PM Time: 12:34LOC: 5 = Fully awake and oriented or at pre-proc level [email or web address] 12:35 PM CathStat 12:36 PM Case Delayed No 2 12:37 PM Time: 12:36 Oxygen on at 2 L/min per nasal cannula by Fatuma Albrecht RN 12:37 PM Hair removed from procedure site in procedure lab using clippers. Bilateral groin prepped with Chloraprep by Mica Dooley), then patient was draped. Skin intact. 12:37 PM Vitals capture started with the following parameters, Patient=Adult, Interval=5 min, Initial Tlidbvaw=801 mmHg, Deflation Rate=5 mmHg, Cuff placed on Right Arm 12:38 PM ASA Class CLASS II- Mild systemic disease (i.e. well-controlled diabetes, hypertension, asthma, cigarette smoking) [email or web address] 12:39 PM JM=833 bpm, RFVZ=808/101 mmhg, SpO2=98.0 %, Resp=14 B/min 12:39 PM Recorded ECG: HR=99 Condition=Condition 1 12:41 PM Time: 12:41 Versed 2 mg Intravenous Given by Fatuma Albrecht RN 12:41 PM Time: 12:41 Fentanyl 50 mcg Intravenous Given by Fatuma Albrecht RN 12:43 PM HR=97 bpm, CEUH=561/94 mmhg, PtT2=234.0 %, Resp=17 B/min 12:48 PM HR=94 bpm, IRQY=357/89 mmhg, SpO2=99.0 %, Resp=14 B/min 12:48 PM Pressure channel 1 zeroed. 12:49 PM Time: 12:34LOC: 4 = Oriented but drowsy [email or web address] 12:49 PM Time: 12:34 Patient comfortable and pain free: Yes 12:53 PM HR=93 bpm, BRFN=675/84 mmhg, SpO2=98.0 %, Resp=15 B/min, EtCO2=38 mmHg 12:55 PM Time out performed according to hospital policy 12:56 PM Time: 12:56 Versed 1 mg Intravenous Given by Fatuma Albrecht RN ilson 12:56 PM Time: 12:56 Versed 25 mg Intravenous Given by Fatuma Albrecht RN [facility] 12:57 PM Time: 12:57 20 ml Lidocaine 2% to right groin Subcutaneous Given by Jacques Valencia MD, [facility] 12:58 PM Unsuccessful access attempt # 1 into the right Femoral artery. Manual pressure applied to achieve hemostasis.. 12:58 PM HR=97 bpm, RMUA=616/96 mmhg, RpZ2=478.0 %, Resp=17 B/min, EtCO2=41 mmHg 12:58 PM Access obtained by percutaneous puncture. 5Fr 10cm Terumo [place] sheath placed in right Femoral artery. [id number] ilson 12:59 PM 0.035 145cm Navilyst 3mmJ wire [id number] 12:59 PM 5Fr FR 4 catheter inserted over the wire [facility] 12:59 PM RCA angiography performed in multiple views. 01:00 PM Coronary Dominance: right 01:01 PM Catheter removed 01:01 PM 5Fr FL 4 catheter inserted over the wire [facility] 01:01 PM LCA angiography performed in multiple views. 01:01 PM Recorded Pressure: Ao, JY=343, Condition=Condition 1 (Aorta) Ao 114/46/78 01:03 PM Catheter removed 01:03 PM WV=418 bpm, EYIB=557/96 mmhg, SpO2=99.0 %, Resp=13 B/min, EtCO2=39 mmHg 01:03 PM 5Fr Pigtail catheter inserted over the wire [facility] 01:04 PM Time: 12:49 Patient comfortable and pain free: Yes 01:04 PM Time: 12:49LOC: 4 = Oriented but drowsy [email or web address] 01:05 PM Catheter selectively placed in left ventricle [email or web address] 01:05 PM Recorded Pressure: LV, NK=341, Condition=Condition 1 (Left Ventricle) LV 141/12/26 01:05 PM Bolus angiogram of left Ventricle complete: 10 ml/sec for a total of 30 mls 01:08 PM Recorded Pressure: LV, Ao, XW=268, Condition=Condition 1 (Left Ventricle) LV 59/57/57, (Aorta) Ao 149/15/84 01:08 PM Catheter removed 01:08 PM PM=677 bpm, CKUG=524/90 mmhg, CmT9=192.0 %, Resp=17 B/min 01:08 PM Bolus angiogram of right Femoral complete: 4 ml/sec for a total of 7 mls 01:11 PM Arterial sheath pulled, Mynx closure device used and was Successful [id number] S/N. 01:12 PM Procedure completed at 13:12 11/20/2017 [email or web address] 01:12 PM Sign out completed: Radiation Dose 174.11 mGy, 2197.74 cGy/cm2 Fluoro Time: 1.0 Isovue 370 - 200ml contrast 77 ml given by Jacques Valencia MD, [facility]. Complications: NoneCardiac Rehab Consult needed: NoConfirmed administered medications: Yes [email or web address] 01:12 PM Isovue 370 - 200ml,1 Bottle(s) used. [email or web address] 01:12 PM Estimated Blood Loss: less than 20cc [email or web address] 01:12 PM Post ECG NSR [email or web address] 01:12 PM Post Blood Pressure 156/90 [email or web address] 01:12 PM Information taught Cardiac Cath and Mynx [email or web address] 01:12 PM Education needs Procedure, Plan of Care, and Disease Process [email or web address] 01:13 PM Learning barriers :Sedated [email or web address] 01:13 PM Education Methods Verbal [email or web address] 01:13 PM Education evaluation Needs further instruction [email or web address] 01:13 PM Delay to floor No [email or web address] 01:13 PM Complications: None [email or web address] 01:13 PM Family placed in consult room. [email or web address] 01:13 PM HR=97 bpm, MZYB=415/89 mmhg, SpO2=99.0 %, Resp=19 B/min 01:14 PM Lesion found in Proximal RCA. Pre Stenosis: 30 Pre MARISOL Flow: 01:14 PM Right Coronary, Right Posterior Descending Arteries with Right Posterolateral and Acute Marginal branches with 30 % stenosis. If graft is supplying this area, 0 % stenosis [email or web address] 01:14 PM Lesion found in 1st Marginal. Pre Stenosis: 70 Pre MARISOL Flow: [email or web address] 01:14 PM Circumflex, Obtuse Marginal, Left Posterior Descending, and Left Posterolateral Coronary Arteries with 70 % stenosis. If graft is supplying this area, 0 % stenosis [email or web address] 01:14 PM Lesion found in 2nd Marginal. Pre Stenosis: 20 Pre MARISOL Flow: [email or web address] 01:18 PM HR=96 bpm, ICHO=393/95 mmhg, SpO2=98.0 %, Resp=16 B/min 01:18 PM Vitals capture stopped. 01:18 PM Site status No bleeding/hematoma - Rt Groin as reported by Sites, Mica RT (R) at 13:18 [email or web address] 01:18 PM Opsite applied [email or web address] 01:19 PM 13:19 Post Pulses Bilateral DP & PT 2+ [email or web address] 01:19 PM Time: 13:04LOC: 5 = Fully awake and oriented or at pre-proc level [email or web address] :19 PM Time: 13:04 Patient comfortable and pain free: Yes [email or web address] 01:20 PM Report given to fatuma COLUNGA Pt taken to E Room #28. 13:20 [email or web address] 01:22 PM Patient out of room: 13:22 [email or web address] Complications Complication None None Hemodynamics Pressures Site Systolic/A Wave Diastolic/V Wave Mean AO 114 46 78 LV 141 12 26 LV 59 57 57 AO 149 15 84 Post Procedure Information Blood Pressure: 156/90 mmHg Rhythm: NSR Post procedural instructions were given Closure Device Time Device Success/Fail 11/20/2017 1:11:00 PM MynxGrip Successful Site Checks Time Location Status Staff Sheath In? Note 01:18 PM Rt Groin No bleeding/hematoma Sites, Mica RT (R) Pulses Time Site Pre-Procedure Post-Procedure Note 11/20/2017 12:40:00 PM Bilateral DP & PT 2+ 11/20/2017 12:40:00 PM Bilateral radial 2+ 1:19:00 PM Bilateral DP & PT 2+ Updated by Hemal Chiu RT (R) on 11/20/2017 1:23:02 PM Hemal Chiu RT electronically signed on 11/20/2017 1:23:31 PM with status of Final
[2017-11-20] MEDS ORDERED: Perflutren Lipid Microsphere 1.3 ML in 0.9 % Sodium Chloride 8.7 ML IVP ONE (16:44)
[2017-11-20] MEDS ORDERED: Perflutren Lipid Microsphere 2 ML VIAL ONE (16:50)
[2017-11-20] MEDS ORDERED: Verapamil ER (24 HR) 180 MG TABLET.ER PO SCH (21:00)
[2017-11-20] MEDS: Acetaminophen 325 MG TABLET PO PRN (21:23)
[2017-11-21] MEDS: Ipratropium/Albuterol Neb 3 ML IH SCH ×3 (04:06→15:55)
[2017-11-21] MEDS: Acetaminophen 325 MG TABLET PO PRN ×2 (05:08→12:07)
--- NOTE | 2017-11-21 08:19 | Cardiology Progress Note ---
Date of Encounter: 11/21/17 Time of Encounter: 08:30 Assessment and Plan (1) NSTEMI (non-ST elevated myocardial infarction) Current Visit: Yes Status: Acute Per Cardiology: Troponin 0.46, 0.21, 0.22. Status post repeat left heart catheterization which showed 8 and proximal LAD stent, patent mid LAD stent, has OM 1 70% lesion with FFR "similar as before, FFR negative". On Plavix, ARB, and statin as home meds. Reports hx of tongue/lip edema to BB--will not start. Will start 81mg ASA-- reports hx of GI bleed in 2013 while on ASA, Plavix and Ibuprofen. Willing to try ASA 81mg and instructed to avoid NSAIDS. Chest pain-free. Cardiology will sign off, reconsult as needed, follow-up arranged. Postprocedure care provided and education. All questions answered. Cath showed mild EF decrease 40-45%, variant Takotsubo suspected (increased stress). However, echo showed: Impressions: LVEF 50%. Normal LV chamber size and wall thickness. Segmental left ventricular systolic dysfunction. Mild left ventricular diastolic dysfunction. There is no LV thrombus. Normal right ventricular structure and function. Mild tricuspid regurgitation. Moderate pulmonary hypertension. Left Ventricular Wall Motion: Rest Echo Findings The apex, apical inferior, apical anterior, apical septal and apical lateral callahan were hypokinetic. All other wall segments showed normal motion. Euvolemic on exam. Discussion w patient/family: The assessment and plan as outlined above was discussed with the patient and/or family members who expressed understanding and agreement. All questions were answered. Thank you for involving us in the care of your patient. Please call with any questions. Subjective Principal diagnosis: CAD, NSTEMI Interval history: Patient denies any chest pain, shortness of breath, palpitations. Reports ambulating hallway today with no difficulty. Denies any concerns from her right groin site. Objective Vital Signs, Last 4 Hours Temp Pulse Resp BP Pulse Ox 11/21/17 07:16 97.7 F 74 16 146/78 97 General: Conversant, No Apparent Distress HEENT: Atraumatic, Normocephaly, Mucus Membranes Moist Neck: No JVD, Normal carotid pulses Cardiac: Reg Rate and Rhythm, Normal S1 and S2, No Murmur Lungs: Normal Breath Sounds, No Wheeze, Rales, Rhonchi Neuro: Alert and responsive, No focal deficits noted Abdomen: Soft, Non-Tender Skin: No rashes noted on visualized skin, Other (Right groin site dry and intact , no hematoma, no ecchymosis, no bleeding, right PT and DP pulses 2+ palpable) Musculoskeletal: No Chest Wall Tenderness Extremities: No Clubbing, No Cyanosis, No Edema, Normal Pulses Results 11/20/17 00:47 11/20/17 00:47 Laboratory Tests 11/19/17 11/19/17 11/20/17 17:05 17:05 00:47 INR 0.9 Creatinine Est GFR (Non-Af Amer) Troponin I 0.46 H* 0.21 H* LDL Cholesterol, Calc 11/20/17 11/20/17 00:47 06:33 INR Creatinine 0.65 Est GFR (Non-Af Amer) > 60 Troponin I 0.22 H* LDL Cholesterol, Calc 71 ITS Impressions Chest CTA 11/19/17 17:45 IMPRESSION: No evidence of pulmonary embolism or acute pulmonary abnormality. D/ / Nigel Hollins MD / Nigel Hollins MD Interpreting Provider: Nigel Hollins MD Head CT 11/19/17 17:46 IMPRESSION: No acute intracranial abnormality. D/ / Andrea Wick MD / Andrea Wick MD Interpreting Provider: Andrea Wick MD Active Medications Acetaminophen (Tylenol) 650 mg PO Q6HR PRN PRN Reason: Pain Stop: 05/21/18 16:33 Last Admin: 11/21/17 05:08 Dose: 650 mg Albuterol/Ipratropium (Duoneb) 3 ml IH [id number] ALFRED Stop: 05/21/18 22:01 Last Admin: 11/21/17 04:06 Dose: Not Given Aspirin (Aspirin) 81 mg PO DAILY ALFRED Stop: 05/22/18 10:16 Last Admin: 11/20/17 11:26 Dose: 81 mg Atorvastatin Calcium (Lipitor) 20 mg PO HS ALFRED Stop: 05/22/18 21:01 Last Admin: 11/20/17 21:22 Dose: 20 mg Clopidogrel Bisulfate (Plavix) 75 mg PO DAILY [facility] Stop: 05/22/18 09:01 Last Admin: 11/20/17 09:58 Dose: 75 mg Dextrose/Water (Dextrose 50% (Syg)) 25 ml IVP AD PRN PRN Reason: Hypoglycemia Stop: 05/21/18 17:50 Fluticasone Propionate (Flonase) 50 mcg NS DAILY ALFRED PRN Reason: Protocol Stop: 05/22/18 09:01 Last Admin: 11/20/17 11:27 Dose: 50 mcg Furosemide (Lasix) 20 mg PO DAILY [facility] Stop: 05/22/18 09:01 Last Admin: 11/20/17 09:57 Dose: 20 mg Glucagon (Glucagen) 1 mg IM ONCE PRN PRN Reason: Hypoglycemia Stop: 05/21/18 17:50 Glucose (Gluctose) 15 gm PO ONCE PRN PRN Reason: Hypoglycemia Stop: 05/21/18 17:50 Glucose (Gluctose) 30 gm PO ONCE PRN PRN Reason: Hypoglycemia Stop: 05/21/18 17:50 Dextrose (Dextrose 5%) 1,000 mls @ 100 mls/hr IVC .Q10H PRN PRN Reason: HYPOGLYCEMIA Stop: 05/21/18 17:50 Insulin Human Lispro (Humalog) 0 units SQ HS [facility] PRN Reason: Protocol Stop: 05/21/18 21:01 Last Admin: 11/20/17 21:23 Dose: Not Given Insulin Human Lispro (Humalog) 0 units SQ TIDAC [facility] PRN Reason: Protocol Stop: 05/22/18 07:31 Last Admin: 11/20/17 17:53 Dose: 2 units Isosorbide Mononitrate (Imdur) 60 mg PO DAILY [facility] Stop: 05/23/18 09:01 Loperamide HCl (Imodium) 2 mg PO AD PRN PRN Reason: Loose Stool Stop: 05/21/18 16:33 Losartan Potassium (Cozaar) 25 mg PO DAILY ALFRED PRN Reason: Protocol Stop: 05/22/18 09:01 Last Admin: 11/20/17 09:58 Dose: 25 mg Naloxone HCl (Narcan) 0.4 mg IVP Q2MIN PRN PRN Reason: SEE COMMENTS Stop: 05/21/18 16:32 Nitroglycerin (Nitroglycerin) 0.4 mg SL Q5MIN PRN PRN Reason: Chest Pain Stop: 05/21/18 16:33 Omeprazole (Prilosec) 20 mg PO DAILY ALFRED Stop: 05/22/18 09:01 Last Admin: 11/20/17 09:58 Dose: 20 mg Potassium Chloride (Potassium Chloride) 20 meq PO DAILY ALFRED Stop: 05/22/18 09:01 Last Admin: 11/20/17 09:58 Dose: 20 meq Verapamil HCl (Calan Sr) 180 mg PO HS ALFRED PRN Reason: Protocol Stop: 05/22/18 21:01 Last Admin: 11/20/17 21:24 Dose: 180 mg - Imaging and Cardiology Cardiac cath: report reviewed - VTE Reasons for not Prescribing Prophylaxis: Not indicated-Anticoagulated or INR therapeutic Consult Discharge Plan - Plan Referrals: Kimberly Tam, [employer] [Primary Care Provider] -
[2017-11-21] MEDS ORDERED: Isosorbide MONOnitrate (24 HR) 30 MG TAB.ER.24H PO SCH (09:00)
[2017-11-21] MEDS: Insulin LISPRO 300 UNITS/3 ML VIAL SQ SCH ×2 (10:14→12:04)
[2017-11-21] MEDS: Furosemide 20 MG TABLET PO SCH (10:18)
[2017-11-21] MEDS: Aspirin 81 MG TAB.CHEW PO SCH (10:19)
[2017-11-21 10:51] VITALS: BP 148/88
[2017-11-21] MEDS: Fluticasone Propionate Nasal 50 MCG/SPRAY BOTTLE NS SCH (11:17)
[2017-11-21] MEDS ORDERED: Isosorbide MONOnitrate (24 HR) 30 MG TAB.ER.24H PO ONE (11:31)
--- NOTE | 2017-11-21 13:17 | Internal Med Progress Note ---
<Jameson Burton P - Last Filed: 11/21/17 14:32> Date of Encounter: 11/21/17 Time of Encounter: 10:00 - Assessment and plan (1) NSTEMI (non-ST elevated myocardial infarction) Current Visit: Yes Status: Acute Assessment and plan: patient has many risk factors with previous CAD Latest Troponin: 0.46- 0.32 Cardiac catheterization report: left heart catheterization which showed 8 and proximal LAD stent, patent mid LAD stent, has OM 1 70% lesion with FFR "similar as before Echo result shows: Mild LVD dysfunction with EF 50% Patient is on Aspirin and Clopidogrel Planned to consult cardiology in OPD follow up Chest pain is 0-1/10 now (2) CAD (coronary artery disease) Current Visit: Yes Status: Chronic Assessment and plan: She has multiple risk factor with previous h/o CAD 2017 Cardiac catheterization: 70 % stenosis Troponin 0.46- 0.32 Latest catheterization report: showed proximal LAD stent, patent mid LAD stent, has OM 1 70% lesion with FFR "similar as before ,Echo result shows: Mild LVD dysfunction with EF 50% Cardiology consultation done : she will be discharged on Plavix and Aspirin She will follow up in cardiac OPD Qualifiers: Coronary Disease-Associated Artery/Lesion type: [place] artery [place] vs. 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 She was in Insulin sliding scale after admission Her latest blood glucose : Qualifiers: Diabetes mellitus type: type 2 Diabetes mellitus joint terminal attack controller insulin use: without joint terminal attack controller use Diabetes mellitus complication status: without complication Qualified Code(s): E11.9 - Type 2 diabetes mellitus without complications - Subjective Interval history: Today 3rd DOA . She is a 62 year old female with HTN/ DM-2 ,CAD, Hyperlipidemia , obesity , transferred from [facility] for burning and dull type of chest pain started at 6 AM yesterday . She has elevate troponin , 7-8/10 in intensity, radiates to neck and left shoulder and arm , lasted for about 20 minutes, mild nausea, but not vomiting, dizziness, palpitation,loss of conscoiousness , relieved a little bit with nitro. Her blood pressure during that time was 160/101 . She has burning pain in oropharayx and throat and difficulty while swallowing She took two nitro with some relief . She denies any cough, leg swelling, fever, vomiting . She states that she feels her left arm weak,cold and a little bit heavy ? 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 She has been feeling fatigue since last thursday , but went to her job till last Thursday. She has elevated Troponin 0.46 - 0.21.Cardiology consultation has been ordered. Her BP 148/88 , 73/minutes, 97.8F .TLC 8.2, BUN14, creatinine 0.65 , Na +136, K3.6 Cardiac catherization report:left heart catheterization which showed proximal LAD stent, patent mid LAD stent, has OM 1 70% lesion with FFR "similar as before Echo result shows: Mild LVD dysfunction with EF 50%.Today patient is symptomatically better, no chest pain, no fresh complaints. Cardiology consultation done and she has been planned to go Home. - Constitutional Vitals: Temp Pulse Resp BP Pulse Ox 97.8 F 73 16 148/88 95 11/21/17 10:48 11/21/17 10:48 11/21/17 11:13 11/21/17 10:48 11/21/17 11:13 General appearance: Present: A&O X 3, pleasant, answers questions appropriately Exam: General appearance: Present: A&O X 3, pleasant, answers questions appropriately - Head Head exam: Present: normocephalic - Eye Eye exam: Present: EOMI, no pale - ENT ENT exam: Present: mucous membranes moist - Neck Neck exam general surgery: Present: normal inspection. Absent: thyromegaly - Respiratory Respiratory exam: equal air entry both side , normal chest expansion, Absent: rales, rhonchi, wheezes - Cardiovascular Cardiovascular exam: Normal rate and rhythm, normal S1S2 , no rub ,no JVD , no other added sound - GI/Abdominal GI/Abdominal exam: Present: normal bowel sounds, soft. Absent: mass, tenderness - Extremities Exam Extremities exam: Present: pedal edema, tenderness, warm - Neurological Exam Neurological exam: Present: alert, oriented X3, Muscle stregth in lower extremities normal , upper extremities normal except platform stapler strength in left hand 4/5 - Psychiatric Psychiatric exam: Present: normal affect, normal mood - Skin Skin exam: Present: dry, warm. Absent: rash Internal Medicine: Result - Labs CBC & Chem 7: 11/20/17 00:47 11/20/17 00:47 - ABG Interpretation ABG results: PT/INR, D-dimer PT 9.6 Seconds (9.4-12.1) 11/19/17 17:05 - Impressions Impressions Echocardiogram 11/20/17 20:16 Impressions: LVEF 50%. Normal LV chamber size and wall thickness. Segmental left ventricular systolic dysfunction. Mild left ventricular diastolic dysfunction. There is no LV thrombus. Normal right ventricular structure and function. Mild tricuspid regurgitation. Moderate pulmonary hypertension. Left Ventricular Wall Motion: Rest Echo Findings The apex, apical inferior, apical anterior, apical septal and apical lateral callahan were hypokinetic. All other wall segments showed normal motion. Findings: Study Quality * Technically adequate exam. ECG Findings * Normal sinus rhythm. Left Ventricle * LVEF 50%. * Normal LV chamber size and wall thickness. * Segmental left ventricular systolic dysfunction. * Mild left ventricular diastolic dysfunction. * There is no LV thrombus. Right Ventricle * Normal right ventricular structure and function. Left Atrium * Mildly dilated left atrium. Right Atrium * Normal right atrial size. Aortic Valve * Trileaflet aortic valve with normal function. * No aortic regurgitation. * No aortic stenosis. Mitral Valve * Normal mitral valve structure and function. * No mitral regurgitation. * No mitral stenosis. Tricuspid Valve * Normal tricuspid valve structure. * Mild tricuspid regurgitation. * Moderate pulmonary hypertension. Pulmonic Valve * Normal pulmonic valve structure and function. * No pulmonic regurgitation. Aorta * Normally sized aortic root. Pericardium * There is a trivial pericardial effusion present. IVC * Normal IVC dimensions and inspiratory collapse. Pulmonary Artery * Normal visualized portions of the main pulmonary artery. - VTE Reasons for not Prescribing Prophylaxis: Not indicated-Anticoagulated or INR therapeutic Consult Discharge Plan - Plan Additional Instructions: No Metformin till Thursday. Referrals: Kimberly Tam CNP [Primary Care Provider] - Prescriptions: Aspirin 81 mg PO DAILY #30 tab.chew Isosorbide MONOnitrate (24 HR) [Imdur] 60 mg PO DAILY #30 tab.er.24h <Todd Gunderson - Last Filed: 11/21/17 14:51> Date of Encounter: 11/21/17 - Assessment and plan (1) NSTEMI (non-ST elevated myocardial infarction) Current Visit: Yes Status: Acute (2) CAD (coronary artery disease) Current Visit: Yes Status: Chronic Qualifiers: Coronary Disease-Associated Artery/Lesion type: [place] artery [place] vs. transplanted heart: [place] heart Associated angina: with unstable angina Qualified Code(s): I25.110 - Atherosclerotic heart disease of [place] coronary artery with unstable angina pectoris (3) Neuro-endocrine cancer Current Visit: Yes Status: Chronic (4) Hyperlipemia, mixed Current Visit: Yes Status: Chronic (5) Diabetes Current Visit: Yes Status: Chronic Qualifiers: Diabetes mellitus type: type 2 Diabetes mellitus skilled nursing insulin use: without joint terminal attack controller use Diabetes mellitus complication status: without complication Qualified Code(s): E11.9 - Type 2 diabetes mellitus without complications - Constitutional Vitals: Temp Pulse Resp BP Pulse Ox 97.8 F 73 16 148/88 95 11/21/17 10:48 11/21/17 10:48 11/21/17 11:13 11/21/17 10:48 11/21/17 11:13 Internal Medicine: Result - Labs CBC & Chem 7: 11/20/17 00:47 11/20/17 00:47 - ABG Interpretation ABG results: PT/INR, D-dimer PT 9.6 Seconds (9.4-12.1) 11/19/17 17:05 - Impressions Impressions Echocardiogram 11/20/17 20:16 Impressions: LVEF 50%. Normal LV chamber size and wall thickness. Segmental left ventricular systolic dysfunction. Mild left ventricular diastolic dysfunction. There is no LV thrombus. Normal right ventricular structure and function. Mild tricuspid regurgitation. Moderate pulmonary hypertension. Left Ventricular Wall Motion: Rest Echo Findings The apex, apical inferior, apical anterior, apical septal and apical lateral callahan were hypokinetic. All other wall segments showed normal motion. Findings: Study Quality * Technically adequate exam. ECG Findings * Normal sinus rhythm. Left Ventricle * LVEF 50%. * Normal LV chamber size and wall thickness. * Segmental left ventricular systolic dysfunction. * Mild left ventricular diastolic dysfunction. * There is no LV thrombus. Right Ventricle * Normal right ventricular structure and function. Left Atrium * Mildly dilated left atrium. Right Atrium * Normal right atrial size. Aortic Valve * Trileaflet aortic valve with normal function. * No aortic regurgitation. * No aortic stenosis. Mitral Valve * Normal mitral valve structure and function. * No mitral regurgitation. * No mitral stenosis. Tricuspid Valve * Normal tricuspid valve structure. * Mild tricuspid regurgitation. * Moderate pulmonary hypertension. Pulmonic Valve * Normal pulmonic valve structure and function. * No pulmonic regurgitation. Aorta * Normally sized aortic root. Pericardium * There is a trivial pericardial effusion present. IVC * Normal IVC dimensions and inspiratory collapse. Pulmonary Artery * Normal visualized portions of the main pulmonary artery. - Attending Attestation Please see discharge summary of this date.
--- NOTE | 2017-11-21 13:40 | Internal Med Progress Note ---
<Jameson Burton P - Last Filed: 11/21/17 14:31> Date of Encounter: 11/21/17 Time of Encounter: 12:30 - Assessment and plan (1) NSTEMI (non-ST elevated myocardial infarction) Current Visit: Yes Status: Acute Assessment and plan: patient has many risk factors with previous CAD Latest Troponin: 0.46- 0.32 Cardiac catheterization report: left heart catheterization which showed 8 and proximal LAD stent, patent mid LAD stent, has OM 1 70% lesion with FFR "similar as before Echo result shows: Mild LVD dysfunction with EF 50% Patient is on Aspirin and Clopidogrel Planned to consult cardiology in OPD follow up Chest pain is 0-1/10 now (2) CAD (coronary artery disease) Current Visit: Yes Status: Chronic Assessment and plan: She has multiple risk factor with previous h/o CAD 2017 Cardiac catheterization: 70 % stenosis Troponin 0.46- 0.32 Latest catheterization report: showed proximal LAD stent, patent mid LAD stent, has OM 1 70% lesion with FFR "similar as before ,Echo result shows: Mild LVD dysfunction with EF 50% Cardiology consultation done : she will be discharged on Plavix and Aspirin She will follow up in cardiac OPD Qualifiers: Coronary Disease-Associated Artery/Lesion type: [place] artery [place] vs. 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 (4) Hyperlipemia, mixed Current Visit: Yes Status: Chronic (5) Diabetes Current Visit: Yes Status: Chronic Qualifiers: Diabetes mellitus type: type 2 Diabetes mellitus skilled nursing insulin use: without oysterman use Diabetes mellitus complication status: without complication Qualified Code(s): E11.9 - Type 2 diabetes mellitus without complications - Subjective Interval history: She is a 62 year old female with HTN/ DM-2 ,CAD, Hyperlipidemia , s/p small bowel resection for neuroendocrine tumor ,obesity , transferred from [facility] for burning and acute onset of dull type of chest pain .The pain was 7-8/10 in intensity, radiates to neck and left shoulder and arm , lasted for about 20 minutes, mild nausea, but not vomiting, no dizziness, palpitation, loss of consciousness , relieved a little bit with nitro. Her blood pressure during that time was 160/101 . She has burning pain in oropharayx and throat and difficulty while swallowing . She took two nitro tabs with some relief . She denies any cough, leg swelling, fever, vomiting . She stated that she feels her left arm weak,cold and a little bit heavy ? 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 She has been feeling fatigue since last one week , but went to her job till she admitted . She has elevated Troponin 0.46 - 0.21( latest report).Cardiology consultation and cardiac catheterization done during her stay in this hospital. Her Left heart catheterization which showed proximal LAD stent, patent mid LAD stent, has OM 1 70% lesion with FFR "similar as before Echo result shows: Mild LVD dysfunction with EF 50%. Today patient is symptomatically better, no chest pain, no fresh complaints. Her BP 148/88 , pulse 73/minutes, 97.8F .TLC 8.2, BUN14, creatinine 0.65 , Na + 136, K3.6 Cardiology reevaluation done today and she has been planned to go home .Her pain level is 0-1/10 . - Constitutional Vitals: Temp Pulse Resp BP Pulse Ox 97.8 F 73 16 148/88 95 11/21/17 10:48 11/21/17 10:48 11/21/17 11:13 11/21/17 10:48 11/21/17 11:13 General appearance: Present: A&O X 3, pleasant, answers questions appropriately Internal Medicine: Result - Labs CBC & Chem 7: 11/20/17 00:47 11/20/17 00:47 - ABG Interpretation ABG results: PT/INR, D-dimer PT 9.6 Seconds (9.4-12.1) 11/19/17 17:05 - Impressions Impressions Echocardiogram 11/20/17 20:16 Impressions: LVEF 50%. Normal LV chamber size and wall thickness. Segmental left ventricular systolic dysfunction. Mild left ventricular diastolic dysfunction. There is no LV thrombus. Normal right ventricular structure and function. Mild tricuspid regurgitation. Moderate pulmonary hypertension. Left Ventricular Wall Motion: Rest Echo Findings The apex, apical inferior, apical anterior, apical septal and apical lateral callahan were hypokinetic. All other wall segments showed normal motion. Findings: Study Quality * Technically adequate exam. ECG Findings * Normal sinus rhythm. Left Ventricle * LVEF 50%. * Normal LV chamber size and wall thickness. * Segmental left ventricular systolic dysfunction. * Mild left ventricular diastolic dysfunction. * There is no LV thrombus. Right Ventricle * Normal right ventricular structure and function. Left Atrium * Mildly dilated left atrium. Right Atrium * Normal right atrial size. Aortic Valve * Trileaflet aortic valve with normal function. * No aortic regurgitation. * No aortic stenosis. Mitral Valve * Normal mitral valve structure and function. * No mitral regurgitation. * No mitral stenosis. Tricuspid Valve * Normal tricuspid valve structure. * Mild tricuspid regurgitation. * Moderate pulmonary hypertension. Pulmonic Valve * Normal pulmonic valve structure and function. * No pulmonic regurgitation. Aorta * Normally sized aortic root. Pericardium * There is a trivial pericardial effusion present. IVC * Normal IVC dimensions and inspiratory collapse. Pulmonary Artery * Normal visualized portions of the main pulmonary artery. - VTE Reasons for not Prescribing Prophylaxis: Not indicated-Anticoagulated or INR therapeutic Consult Discharge Plan - Plan Additional Instructions: No Metformin till Thursday. Referrals: Kimberly Tam CNP [Primary Care Provider] - Prescriptions: Aspirin 81 mg PO DAILY #30 tab.chew Isosorbide MONOnitrate (24 HR) [Imdur] 60 mg PO DAILY #30 tab.er.24h <Todd Gunderson - Last Filed: 11/21/17 14:50> Date of Encounter: 11/21/17 - Assessment and plan (1) NSTEMI (non-ST elevated myocardial infarction) Current Visit: Yes Status: Acute (2) CAD (coronary artery disease) Current Visit: Yes Status: Chronic Qualifiers: Coronary Disease-Associated Artery/Lesion type: [place] artery [place] vs. transplanted heart: [place] Associated angina: with unstable angina Qualified Code(s): I25.110 - Atherosclerotic heart disease of [place] coronary artery with unstable angina pectoris (3) Neuro-endocrine cancer Current Visit: Yes Status: Chronic (4) Hyperlipemia, mixed Current Visit: Yes Status: Chronic (5) Diabetes Current Visit: Yes Status: Chronic Qualifiers: Diabetes mellitus type: type 2 Diabetes mellitus skilled nursing insulin use: without oysterman use Diabetes mellitus complication status: without complication Qualified Code(s): E11.9 - Type 2 diabetes mellitus without complications - Constitutional Vitals: Temp Pulse Resp BP Pulse Ox 97.8 F 73 16 148/88 95 11/21/17 10:48 11/21/17 10:48 11/21/17 11:13 11/21/17 10:48 11/21/17 11:13 Internal Medicine: Result - Labs CBC & Chem 7: 11/20/17 00:47 11/20/17 00:47 - ABG Interpretation ABG results: PT/INR, D-dimer PT 9.6 Seconds (9.4-12.1) 11/19/17 17:05 - Impressions Impressions Echocardiogram 11/20/17 20:16 Impressions: LVEF 50%. Normal LV chamber size and wall thickness. Segmental left ventricular systolic dysfunction. Mild left ventricular diastolic dysfunction. There is no LV thrombus. Normal right ventricular structure and function. Mild tricuspid regurgitation. Moderate pulmonary hypertension. Left Ventricular Wall Motion: Rest Echo Findings The apex, apical inferior, apical anterior, apical septal and apical lateral callahan were hypokinetic. All other wall segments showed normal motion. Findings: Study Quality * Technically adequate exam. ECG Findings * Normal sinus rhythm. Left Ventricle * LVEF 50%. * Normal LV chamber size and wall thickness. * Segmental left ventricular systolic dysfunction. * Mild left ventricular diastolic dysfunction. * There is no LV thrombus. Right Ventricle * Normal right ventricular structure and function. Left Atrium * Mildly dilated left atrium. Right Atrium * Normal right atrial size. Aortic Valve * Trileaflet aortic valve with normal function. * No aortic regurgitation. * No aortic stenosis. Mitral Valve * Normal mitral valve structure and function. * No mitral regurgitation. * No mitral stenosis. Tricuspid Valve * Normal tricuspid valve structure. * Mild tricuspid regurgitation. * Moderate pulmonary hypertension. Pulmonic Valve * Normal pulmonic valve structure and function. * No pulmonic regurgitation. Aorta * Normally sized aortic root. Pericardium * There is a trivial pericardial effusion present. IVC * Normal IVC dimensions and inspiratory collapse. Pulmonary Artery * Normal visualized portions of the main pulmonary artery. - Attending Attestation Please see discharge summary of this date.
--- NOTE | 2017-11-21 13:45 | Discharge Summary ---
<Jameson Burton P - Last Filed: 11/21/17 14:28> - NOTES TO OUTPATIENT PROVIDER Notes to Outpatient Provider: Follow up with her PCP and cariology in Out patient unit Date of Encounter: 11/21/17 Time of Encounter: 12:00 - Discharge Diagnosis (1) NSTEMI (non-ST elevated myocardial infarction) Priority: Primary Status: Acute Comments: patient has many risk factors with previous CAD Latest Troponin: 0.46- 0.32 Cardiac catheterization report: left heart catheterization which showed 8 and proximal LAD stent, patent mid LAD stent, has OM 1 70% lesion with FFR "similar as before Echo result shows: Mild LVD dysfunction with EF 50% Patient is on Aspirin and Clopidogrel Planned to follow up cardiology in [facility] Chest pain is 0-1/10 now (2) CAD (coronary artery disease) Priority: Primary Status: Chronic Comments: She has multiple risk factor with previous h/o CAD 2016 Cardiac catheterization: 70 % stenosis Troponin 0.46- 0.32 Latest Left Heart catheterization report 11/19 : showed proximal LAD stent, patent mid LAD stent, has OM 1 70% lesion with FFR "similar as before , Echo result shows: Mild LVD dysfunction with EF 50% Cardiology consultation done : she will be discharged on Plavix and Aspirin She will follow up in cardiac [facility] Qualifiers: Coronary Disease-Associated Artery/Lesion type: bois forte artery [place] vs. 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 She was in Insulin sliding scale after admission Her latest blood glucose :168 We will resume oral antidiabetic medication. Qualifiers: Diabetes mellitus type: type 2 Diabetes mellitus manager long term care insulin use: without snf use Diabetes mellitus complication status: without complication Qualified Code(s): E11.9 - Type 2 diabetes mellitus without complications Hospital course: She is a 62 year old female with HTN/ DM-2 ,CAD, Hyperlipidemia , s/p small bowel resection for neuroendocrine tumor ,obesity , transferred from [facility] for burning and acute onset of dull type of chest pain .The pain was 7-8/10 in intensity, radiated to neck and left shoulder and arm , lasted for about 20 minutes, mild nausea, but not vomiting, no dizziness, palpitation, loss of consciousness , relieved a little bit with nitro. Her blood pressure during that time was 160/101 . She had burning pain in oropharayx and throat and difficulty while swallowing . She took two nitro tabs with some relief . She denied any cough, leg swelling, fever, vomiting . 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 She had been feeling fatigue since last one week , but went to her job till she admitted in this hospital . She had elevated Troponin 0.46 - 0.21( latest report).Cardiology consultation and cardiac catheterization wasdone during her stay in this hospital. Her Left heart catheterization which showed proximal LAD stent, patent mid LAD stent, has OM 1 70% lesion with FFR "similar as before Echo result shows: Mild LVD dysfunction with EF 50%. Today patient is symptomatically better, no chest pain, no fresh complaints. Her BP is 148/88 , pulse 73/minutes, 97.8F .TLC 8.2, BUN14, creatinine 0.65 , Na +136, K3.6 Cardiology reevaluation done today and as per recommendation we are discharging her and will follow up with her PCP and tobacco sprayer .Her pain level is 0-1/10 now . - Time Spent with Patient Total time spent providing and/or coordinating discharge services: - Discharge Medications Prescriptions: Aspirin 81 mg PO DAILY #30 tab.chew Isosorbide MONOnitrate (24 HR) [Imdur] 60 mg PO DAILY #30 tab.er.24h Home Medications: Acetaminophen [Tylenol] 650 mg PO Q6HR PRN 06/12/17 [History] Albuterol Sulfate [Albuterol Inhaler] 2 puff IH DAILY PRN 06/12/17 [History] Atorvastatin Calcium [Lipitor] 20 mg PO HS 06/12/17 [History] Biotin 1 mg PO DAILY 06/12/17 [History] Cholecalciferol (D-3) [Vitamin D] 50,000 unit PO MO 06/12/17 [History] Clopidogrel [Plavix] 75 mg PO DAILY 06/12/17 [History] Fluticasone Propionate Nasal [Flonase] 1 spr NS DAILY 06/12/17 [History] Furosemide [Lasix] 20 mg PO DAILY 06/12/17 [History] Glimepiride [Amaryl] 2 mg PO 0800 06/12/17 [History] Loperamide [Imodium] 2 mg PO AD PRN MDD MAX 6 TAB PER 24 HOURS 06/12/17 [History ] Losartan [Cozaar] 25 mg PO DAILY 06/12/17 [History] Metformin HCl [Fortamet] 1,000 mg PO BID 06/12/17 [History] Mometasone/Formoterol [Dulera 100 Mcg/5 Mcg Inhaler] 1 puff IH DAILY 06/12/17 [ History] Nitroglycerin [Nitrostat] 0.4 mg SL Q5-6MIN PRN 06/12/17 [History] [place]-3/Dha/Epa/Fish Oil [Fish Oil 1,000 mg Softgel] 1 cap PO DAILY 06/12/17 [ History] Omeprazole 20 mg PO DAILY 06/12/17 [History] Potassium Chloride [K-Tab ER] 20 meq PO DAILY 06/12/17 [History] Triamterene/Hydrochlorothiazid [Triamterene-Hctz 75-50 mg Tab] 1.5 tab PO DAILY 06/12/17 [History] Ubidecarenone [Coenzyme Q-10] 200 mg PO DAILY 06/12/17 [History] Verapamil HCl [Verelan Pm] 200 mg PO DAILY 06/12/17 [History] Xyzal 5 mg PO DAILY 11/19/17 [History] Aspirin 81 mg PO DAILY #30 tab.chew 11/21/17 [Rx] Isosorbide MONOnitrate (24 HR) [Imdur] 60 mg PO DAILY #30 tab.er.24h 11/21/17 [ Rx] Allergies/Adverse Reactions: 3 Allergy/AdvReac Type Severity Reaction Status Date / Time metoprolol Allergy Difficulty Verified 11/19/17 14:38 Breathing morphine Allergy Swelling Verified 11/19/17 14:38 of Lip/Tongue/Throat propoxyphene [From Darvon] Allergy Itching Verified 11/19/17 14:38 Sulfa (Sulfonamide Allergy Blister Verified 11/19/17 14:38 Antibiotics) adhesive tape AdvReac Itching Verified 06/12/17 09:13 Date of admission: 11/20/17 14:00 Primary care physician: Kimberly Tam CNP Consults: 11/19/17 16:37 Consult to Cardiology [CONS] Routine Comment: Consulting Provider: Cardiology [place] Reason for Consult: Chest pain - notified by [facility] ED Call Completed: Yes 11/19/17 19:40 Consult to Pastoral Services [CONS] Routine Comment: 11/21/17 08:21 Consult to Cardiac Rehabilitation-Phase1 [CONS] Routine Comment: Reason for Consult: NSTEMI, CAD Call Completed: No - Constitutional Vitals: Temp Pulse Resp BP Pulse Ox 97.8 F 73 16 148/88 95 11/21/17 10:48 11/21/17 10:48 11/21/17 11:13 11/21/17 10:48 11/21/17 11:13 General appearance: Present: A&O X 3, pleasant, answers questions appropriately Exam: General appearance: Present: A&O X 3, pleasant, answers questions appropriately - Head Head exam: Present: normocephalic - Eye Eye exam: Present: EOMI, no pale - ENT ENT exam: Present: mucous membranes moist - Neck Neck exam general surgery: Present: normal inspection. Absent: thyromegaly - Respiratory Respiratory exam: equal air entry both side , normal chest expansion, Absent: rales, rhonchi, wheezes - Cardiovascular Cardiovascular exam: Normal rate and rhythm, normal S1S2 , no rub ,no JVD , no other added sound - GI/Abdominal GI/Abdominal exam: Present: normal bowel sounds, soft. Absent: mass, tenderness - Extremities Exam Extremities exam: Present: pedal edema, tenderness, warm - Neurological Exam Neurological exam: Present: alert, oriented X3, Muscle strength in lower extremities normal , upper extremities normal except lining stuffer strength in left hand 4/5 - Psychiatric Psychiatric exam: Present: normal affect, normal mood - Skin Skin exam: Present: dry, warm. Absent: rash - Patient Status Disposition: Home, Self-Care Condition: Fair Functional capacity at discharge: independent ambulation Overall status at discharge: patient is progressing back to baseline - Discharge Instructions Follow Up With: Kimberly Tam CNP [Primary Care Provider] - Forms: Inpatient Work/School Release Additional Instructions: No Metformin till Thursday. - Diet and Activity Activity: increase activity as tolerated - VTE Reasons for not Prescribing Prophylaxis: Not indicated-Anticoagulated or INR therapeutic <NeptaliTodd A - Last Filed: 11/21/17 14:43> Date of Encounter: 11/21/17 - Discharge Diagnosis (1) NSTEMI (non-ST elevated myocardial infarction) Status: Acute (2) CAD (coronary artery disease) Status: Chronic Qualifiers: Qualified Code(s): I25.110 - Atherosclerotic heart disease of bois [place]te coronary artery with unstable angina pectoris (3) Neuro-endocrine cancer Status: Chronic (4) Hyperlipemia, mixed Status: Chronic (5) Diabetes Status: Chronic Qualifiers: Qualified Code(s): E11.9 - Type 2 diabetes mellitus without complications Hospital course: Ms. Lacey is a 62 year old female - Time Spent with Patient Total time spent providing and/or coordinating discharge services: 40min Date of admission: 11/20/17 14:00 Primary care physician: Kimberly Tam CNP Consults: 11/19/17 16:37 Consult to Cardiology [CONS] Routine Comment: Consulting Provider: Cardiology [place] Reason for Consult: Chest pain - notified by [facility] ED Call Completed: Yes 11/19/17 19:40 Consult to Pastoral Services [CONS] Routine Comment: 11/21/17 08:21 Consult to Cardiac Rehabilitation-Phase1 [CONS] Routine Comment: Reason for Consult: NSTEMI, CAD Call Completed: No - Constitutional Vitals: Temp Pulse Resp BP Pulse Ox 97.8 F 73 16 148/88 95 11/21/17 10:48 11/21/17 10:48 11/21/17 11:13 11/21/17 10:48 11/21/17 11:13 - Diet and Activity Diet: advance to your usual diet - Attending Attestation I examined this patient and my medical decision-making was reviewed with the Resident Physician on 11/21/17. I agree with the documented findings, disposition and treatment plan as described except to the extent set forth below. Ms Lacey has been admitted for acute NSTEMI. She underwent cardiac cath and was felt to perhaps have Tak[place]utbo. No intervention was needed at that time. Today she is afebrile. She is on increased Imdur dose. At this time she is ready for discharge home. Exam alert Comfortable Mucus membranes dry Heart not tachy No wheeze Abd soft and nontender Plan D/C home today.
== END 2017-11-21 17:42 | disposition home or self-care (01) | DRG 281 ==
LOC: 2NENU → SUATTDRO 13:19
PROVIDERS: ADMIT Internal Medicine; ATTEND Internal Medicine

== ENCOUNTER 2018-02-19 18:49 | Observation (INO) ==
[2018-02-20] MEDS ORDERED: Naloxone 0.4 MG/ML INJ IVP PRN (01:04)
[2018-02-20] MEDS ORDERED: D5% in Water 1,000 ML IVC PRN (01:08)
[2018-02-20] MEDS ORDERED: Dextrose Gel 15 GM/37.5 ML TUBE PO PRN ×2 (01:08)
[2018-02-20] MEDS ORDERED: *HR* Dextrose 50 % in Water (Syg) 50 ML SYRINGE IVP PRN (01:08)
[2018-02-20] MEDS ORDERED: *HR* Heparin 5,000 UNIT/ML VIAL IVP PRN ×2 (01:10)
[2018-02-20] MEDS ORDERED: *HR* Heparin 5,000 UNIT/ML VIAL IVP ONE (01:10)
--- NOTE | 2018-02-20 01:41 | Internal Med History&Physical ---
<Davon Ramos P - Last Filed: 02/20/18 01:17> Date of Encounter: 02/19/18 Time of Encounter: 23:45 Internal Medicine - H&P: HPI Chief complaint: Chest Pain Admitted From: Home Plans for Post Hospital Care: Home History of present illness: Ms. Lacey is a 62 year old female with past medical history significant for CAD with stents x3, CHF, hypertension, hyperlipidemia, diabetes, asthma, acid reflux, and neuroendocrine tumor with small bowel resection who presents as hospital transfer from [facility] ED for 7/10 recurrent left sided aching heavy chest pain over past 2 days temporarily relieved with home nitroglycerin. Reports taking 4 doses of home nitroglycerin and one dose in ED. Pain radiated to neck and senior care down left arm. Pain was accompanied by shortness of breath and burning sensation in her throat. Nitro and rest improved pain, no exacerbating factors noted. Continues to have 2/10 chest pain at this time. [facility] ED reported chest x-ray as normal, initial troponin negative, and EKG as sinus rhythm. CBC and BMP at [facility] were unremarkable besides chloride of 98, calcium of 10.2, and glucose of 112. EKG repeated upon arrival and remains sinus rhythm. Has history of 3 heart catheterizations with 3 stents placed around 4 years ago. Was admitted in November 2017 with NSTEMI. Heart catheterization at that time revealed nonobstructive CAD with patent LAD stents, mild segmental LV dysfunction EF 40-45% with variant Takotsubo versus focal myocarditis. Last followed up with [facility] was after discharge in November. Also follows up with oncology at [facility] for neuroendocrine tumor with small bowel resection, last follow-up was in February and has future follow up scheduled in 6 months. Checks blood pressure regularly at home and reports her systolic has been averaging in the 130s. Checks blood sugars regularly at home and reports they have been averaging 90-110. Past Med Surg Social Fam HX - Past Medical History Medical history: asthma, CHF, coronary artery disease, diabetes, GERD, hyperlipidemia, hypertension Additional medical history: ventral incisional hernia-"sx September 2016 but starting to push back out again". morbid obesity. neuroendocrine tumor with small bowel resection Psychiatric history: no psych history - Past Surgical History Surgical History: angioplasty/stent, other Additional surgical history: 3 cardiac stents in 2013. Duodenal tumor removed and follows up with Oncology outpatient to monitor growth - Social History Smoking Status: Never smoker Smokeless Tobacco Status: No Alcohol use: none Drug use: none - Family History Mother Living Status: Age at : 73 Cause of : Stroke Hx Family Cardiac Disorders: Yes (Angina, HTN, CVA) Hx Family Endocrine Disorder: Yes (DM) Hx Family Neurologic Disorders: Yes (Stroke) Father Living Status: Age at : 71 Cause of : [place] Hx Family Cardiac Disorders: Yes (AK) Hx Family Endocrine Disorder: Yes (DM) Sister Hx Family Cancer: Yes (Thyroid Cancer) Hx Family Endocrine Disorder: Yes (DM) Internal Medicine - H&P: Meds Acetaminophen [Tylenol] 650 mg PO Q6HR PRN 06/12/17 [History] Albuterol Sulfate [Albuterol Inhaler] 2 puff IH TID 06/12/17 [History] Atorvastatin Calcium [Lipitor] 20 mg PO HS 06/12/17 [History] Biotin 1 tab PO DAILY 06/12/17 [History] Cholecalciferol (D-3) [Vitamin D] 50,000 unit PO DAILY 06/12/17 [History] Clopidogrel [Plavix] 75 mg PO DAILY 06/12/17 [History] Fluticasone Propionate Nasal [Flonase] 1 spr NS DAILY 06/12/17 [History] Furosemide [Lasix] 20 mg PO DAILY 06/12/17 [History] Glimepiride [Amaryl] 2 mg PO 0800 06/12/17 [History] Loperamide [Imodium] 2 mg PO AD PRN MDD MAX 6 TAB PER 24 HOURS 06/12/17 [History] Losartan [Cozaar] 25 mg PO DAILY 06/12/17 [History] Metformin HCl [Fortamet] 1,000 mg PO BID 06/12/17 [History] Mometasone/Formoterol [Dulera 100 Mcg/5 Mcg Inhaler] 1 puff IH DAILY 06/12/17 [History] Nitroglycerin [Nitrostat] 0.4 mg SL Q5-6MIN PRN 06/12/17 [History] [place]-3/Dha/Epa/Fish Oil [Fish Oil 1,000 mg Softgel] 1 cap PO DAILY 06/12/17 [History] Omeprazole 20 mg PO DAILY 06/12/17 [History] Potassium Chloride [K-Tab ER] 20 meq PO DAILY 06/12/17 [History] Triamterene/Hydrochlorothiazid [Triamterene-Hctz 75-50 mg Tab] 1.5 tab PO DAILY 06/12/17 [History] Ubidecarenone [Coenzyme Q-10] 100 mg PO DAILY 06/12/17 [History] Verapamil HCl [Verelan Pm] 200 mg PO DAILY 06/12/17 [History] Xyzal 5 mg PO DAILY 11/19/17 [History] Isosorbide MONOnitrate (24 HR) [Imdur] 60 mg PO DAILY #30 tab.er.24h 11/21/17 [Rx] Aspirin 81 mg PO DAILY 02/19/18 [History] Dulera 100 Mcg/5 Mcg Inhaler 2 inh IH BID 02/19/18 [History] Levocetirizine Dihydrochloride [Allergy Relief] 5 mg PO HS 02/19/18 [History] Magnesium Oxide [Mgo] 400 mg PO BID 02/19/18 [History] Allergy/AdvReac Type Severity Reaction Status Date / Time metoprolol Allergy Difficulty Verified 11/19/17 14:38 Breathing morphine Allergy Swelling Verified 11/19/17 14:38 of Lip/Tongue/Throat propoxyphene [From Darvon] Allergy Itching Verified 11/19/17 14:38 Sulfa (Sulfonamide Allergy Blister Verified 11/19/17 14:38 Antibiotics) adhesive tape AdvReac Itching Verified 06/12/17 09:13 All Systems PM: A 10-system review of systems was performed and is negative for pertinent findings except as documented above in the HPI. - Constitutional Vitals: Temp Pulse Resp BP Pulse Ox 97.7 F 79 14 139/79 94 02/19/18 23:27 02/19/18 23:27 02/19/18 23:27 02/19/18 23:27 02/19/18 23:27 Exam: General: Alert and oriented. Skin:Normal color, no rash, no lesions. HEENT:Pupils equal, round and reactive. Cardiovascular:Normal S1 & S2, no rubs, murmurs or gallops. No JVD. Pulse regular. Lungs:Normal breath sounds, no wheezes or crackles. Abdomen:Soft, non-tender, no rigidity. Extremities:No deformity, tenderness, or clubbing. Non pitting edema noted to bilateral lower extremities. Neurological:Normal cognition and motor skills. Pulses:Carotid and radial pulses normal +2. Rest of the physical exam is non contributory. Internal Med - H&P Results - Labs Labs: Cardiac Enzymes 02/19/18 Range/Units 23:45 Troponin I < 0.03 (< 0.04) ng/mL - Assessment and plan (1) Unstable angina Current Visit: Yes Status: Suspected Assessment and plan: Cardiology consulted. Continuous cardiac monitoring. Initial troponin negative, serial troponins ordered. Nitro paste ordered q6. Heparin drip ordered. Cardiac/Diabetic Diet. (2) Diabetes Current Visit: No Status: Chronic Assessment and plan: Sliding scale insulin. ACHS accucheck. Hold home diabetic medications. 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 Qualifiers: Chest pain type: unspecified Qualified Code(s): R07.9 - Chest pain, unspecified - Time Spent With Patient Total time spent is greater than 50% in coordination of care (as documented) at patient's floor/unit and/or counseling patient: <Wei Moses - Last Filed: 02/20/18 03:01> Date of Encounter: 02/20/18 Time of Encounter: 00:45 - Constitutional Constitutional: no chills, no fever(s) - EENT Nose, mouth and throat: no nasal congestion, no sore throat - Cardiovascular Cardiovascular ROS IM: chest pain, dyspnea, dyspnea on exertion, no orthopnea, no syncope - Respiratory Respiratory: no cough, no chest congestion, no excessive phlegm production - Gastrointestinal Gastrointestinal: no abdominal pain, no vomiting - Genitourinary Genitourinary: no dysuria, no flank pain - Musculoskeletal Musculoskeletal ROS IM: no arthralgias - Neurological Neurological ROS: no dizziness, no focal weakness, no headache(s) - Psychiatric Psychiatric: no anxiety, no depression - Constitutional Vitals: Temp Pulse Resp BP Pulse Ox 97.7 F 79 14 139/79 94 02/19/18 23:27 02/19/18 23:27 02/19/18 23:27 02/19/18 23:27 02/19/18 23:27 General appearance: Present: cooperative, A&O X 3, pleasant, no acute distress - Eye Eye exam: Present: PERRL. Absent: scleral icterus - ENT ENT exam: Present: mucous membranes dry, normal exam - Neck Neck exam general surgery: Present: supple. Absent: tenderness, nuchal rigidity, thyromegaly - Respiratory Respiratory exam: Present: CTAB. Absent: chest wall tenderness, rales, rhonchi, wheezes - Cardiovascular Cardiovascular exam: Present: RRR, +S1, +S2. Absent: diastolic murmur, systolic murmur - GI/Abdominal GI/Abdominal exam: Present: soft. Absent: hepatomegaly, splenomegaly, tenderness - Extremities Exam Extremities exam: Present: normal capillary refill, warm, radial pulses palpable and symmetrical. Absent: pedal edema, tenderness - Back Exam Back exam: Absent: CVA tenderness (L), CVA tenderness (R) - Psychiatric Psychiatric exam: Present: normal affect, normal mood Internal Med - H&P Results - Labs CBC & Chem 7: 02/20/18 01:55 Labs: Short CBC 02/20/18 Range/Units 01:55 WBC 8.8 (4.3-11.1) K/mcL Hgb 13.1 (11.5-15.4) g/dL Hct 40.2 (35.3-44.9) % Plt Count 281 (140-400) K/mcL Cardiac Enzymes 02/19/18 Range/Units 23:45 Troponin I < 0.03 (< 0.04) ng/mL - Assessment and plan (1) Diabetes Current Visit: No Status: Chronic Qualifiers: Diabetes mellitus type: type 2 Diabetes mellitus jail insulin use: without jail use Diabetes mellitus complication status: without complication Qualified Code(s): E11.9 - Type 2 diabetes mellitus without complications (2) Unstable angina Current Visit: Yes Status: Suspected (3) Chest pain Current Visit: Yes Status: Acute Qualifiers: Chest pain type: unspecified Qualified Code(s): R07.9 - Chest pain, unspecified - Time Spent With Patient Total time spent is greater than 50% in coordination of care (as documented) at patient's floor/unit and/or counseling patient: - Attending Attestation I discussed the patient PALA, past medical history, review of systems, lab data, and exam findings with Joby Ramos CNP. I then saw and examined patient independently. Patient and her both confirm history of unstable angina. She has had worsening chest pain and dyspnea with exertion over the last several days. She is requiring frequent doses of nitroglycerin with relief of her symptoms. However, over the last 24 hours, she only had partial relief with nitroglycerin. Given her history of known coronary disease and prior stents, she came to the ER for evaluation. She still has some subtle 2 out of 10 chest pain. Given her symptoms, known coronary disease, and current chest pain, I recommended starting her on heparin drip, Nitropaste, morphine as needed, and consulting cardiology. Should her chest pain persist or worsen, she may warrant nitroglycerin drip as well. Other than my comments above and noted exam findings, I agree with Joby's assessment and plan.
[2018-02-20] MEDS: Heparin 25,000 UNIT/500 ML D5W 25,000 UNIT/500 ML BAG IVC SCH (02:14)
[2018-02-20 02:21] LABS: Hematocrit 40.2 % (35.3-44.9); Hemoglobin 13.1 g/dL (11.5-15.4); Mean Corpuscular HGB Conc 32.6 g/dL (31.6-35.5); Mean Corpuscular Hemoglobin 28.7 pg (28.0-33.3); Mean Corpuscular Volume 88.2 fL (83.0-100.0); Mean Platelet Volume 10.7 fL (9.4-12.4); Platelet Count 281 K/mcL (140-400); Red Blood Count 4.56 M/mcL (3.82-4.97); Red Cell Distribution Width 13.7 % (11.5-14.5)
[2018-02-20] MEDS: Nitroglycerin 1 INCH/GM PACKET TP SCH ×2 (02:26→12:25)
[2018-02-20 02:29] LABS: Heparin anti-factor XA UFH 0.07 IU/mL (0.30-0.70)
[2018-02-20 02:30] LABS: INR 0.9; Prothrombin Time 9.6 Seconds (9.4-12.1)
[2018-02-20 07:08] LABS: Basophils # 0.1 K/mcL (0.0-0.2); Basophils % 0.8 %; Eosinophils # 0.1 K/mcL (0.0-0.6); Eosinophils % 0.7 %; Hematocrit 41.1 % (35.3-44.9); Hemoglobin 13.5 g/dL (11.5-15.4); Immature Granulocytes % 0.5 % (0-4); Lymphocytes # 1.6 K/mcL (0.6-4.6); Lymphocytes % 19.1 %; Mean Corpuscular HGB Conc 32.8 g/dL (31.6-35.5); Mean Corpuscular Hemoglobin 28.5 pg (28.0-33.3); Mean Corpuscular Volume 86.9 fL (83.0-100.0); Mean Platelet Volume 10.6 fL (9.4-12.4); Monocytes # 0.4 K/mcL (0.0-1.3); Monocytes % 4.6 %; Neutrophils # 6.2 K/mcL (1.6-8.9); Platelet Count 289 K/mcL (140-400); Red Blood Count 4.73 M/mcL (3.82-4.97); Red Cell Distribution Width 13.8 % (11.5-14.5); Segmented Neutrophils % 74.3 %
[2018-02-20 07:30] LABS: Troponin I < 0.03 ng/mL (< 0.04)
[2018-02-20 07:35] LABS: BUN/Creatinine Ratio 26 (6-26); Blood Urea Nitrogen 17 mg/dL (8-23); Carbon Dioxide 26 mEq/L (23-29); Chloride 101 mEq/L (98-107); Glucose 121 mg/dL (70-105); Osmolality,Calculated 293 (280-300); Potassium 3.5 mEq/L (3.5-5.1); Sodium 140 mEq/L (136-145); eGFR For Non-African Americans > 60 (> 60)
[2018-02-20] MEDS: Budesonide/Formoterol 80/4.5 MDI IH SCH ×2 (08:02→22:57)
--- NOTE | 2018-02-20 08:38 | Internal Med Progress Note ---
Hospitalist Progress Note - Encounter Date of Encounter: 02/20/18 Time of Encounter: 08:31 - Subjective Interval History: Admitted overnight with concerns for unstable angina. Resting comfortably bedside this morning reporting mild chest pain 1/10 left-sided. Chest pain is somewhat reproducible to gentle palpation of left chest. History of CAD, concer n for unstable angina. He is hemodynamically stable. Discussed plan of care, patient agrees. - Exam Vitals: Temp Pulse Resp BP Pulse Ox 97.9 F 78 14 150/89 97 02/20/18 07:49 02/20/18 07:49 02/20/18 07:49 02/20/18 07:49 02/20/18 07:49 Exam: General: Alert and oriented. Skin:Normal color, no rash, no lesions. HEENT:Pupils equal, round and reactive. Cardiovascular: RRR, Normal S1 & S2, no rubs, murmurs or gallops. No JVD Lungs:Normal breath sounds, no wheezes or crackles. Chest expansion symmetrical, adequate rise and fall. Mild tenderness to palpation Abdomen:Soft, non-tender, no rigidity. Extremities:No deformity, tenderness, or clubbing. Non pitting edema noted to bilateral lower extremities. Neurological:Normal cognition and motor skills. Pulses:Carotid and radial pulses normal +2. Rest of the physical exam is non contributory. - Assessment and Plan (1) Unstable angina Current Visit: Yes Status: Suspected Assessment and Plan: History of CAD Recent catheter in November 2017 showing nonobstructive occlusive disease and patent stents; stents 3 Presents with concerns for unstable angina --She is reporting a 2 day history of left-sided heavy chest pain which was somewhat relieved with nitroglycerin She reports that the pain is worse in the morning Additionally, she notes a history of A. fib and reports that she feels like at 5 AM she is also experiencing A. fib. Heparin drip initiated, continue Consult cardiology, appreciate recommendations, thank you. Currently taking 60 mg Imdur daily and Ranexa 500 mg twice a day. Continuous telemetry Troponin negative 2; obtain additional troponin Cardiology consulted. Nitro paste ordered q6. Cardiac/Diabetic Diet. (2) Diabetes Current Visit: No Status: Chronic Assessment and Plan: History of diabetes, well-controlled Continue LSSIC Continue Accu-Cheks DM diet (3) Chest pain Current Visit: Yes Status: Acute Assessment and Plan: As above DVT Prophylaxis: On heparin drip - Time Spent with Patient Total time spent is greater than 50% in coordination of care (as documented) at patient's floor/unit and/or counseling patient: less than 15 minutes Plan of Care Discussed with: patient Internal Medicine: Result - Labs CBC & Chem 7: 02/20/18 06:36 02/20/18 06:36 Labs: Short CBC 02/20/18 02/20/18 Range/Units 01:55 06:36 WBC 8.8 8.3 (4.3-11.1) K/mcL Hgb 13.1 13.5 (11.5-15.4) g/dL Hct 40.2 41.1 (35.3-44.9) % Plt Count 281 289 (140-400) K/mcL Neutrophils # 6.2 (1.6-8.9) K/mcL BMP 02/20/18 06:36 Sodium 140 Potassium 3.5 Chloride 101 Carbon Dioxide 26 BUN 17 Creatinine 0.66 Glucose 121 H Calcium 10.0 Cardiac Enzymes 02/19/18 02/20/18 Range/Units 23:45 06:36 Troponin I < 0.03 < 0.03 (< 0.04) ng/mL - ABG Interpretation ABG results: PT/INR, D-dimer PT 9.6 Seconds (9.4-12.1) 02/20/18 01:55 (2) Diabetes Qualifiers: Diabetes mellitus type: type 2 Diabetes mellitus 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
[2018-02-20] MEDS: Insulin LISPRO 300 UNITS/3 ML VIAL SQ SCH ×3 (08:46→17:11)
[2018-02-20] MEDS ORDERED: BIOTIN PO SCH (09:00)
[2018-02-20] MEDS ORDERED: UBIDECARENONE 100 MG PO SCH (09:00)
[2018-02-20] MEDS: Cholecalciferol (D-3) 1,000 UNIT TABLET PO SCH (09:01)
[2018-02-20] MEDS: Magnesium Oxide 400 MG TABLET PO SCH ×2 (09:01→20:08)
[2018-02-20] MEDS: Ranolazine 500 MG TAB.ER.12H PO SCH ×2 (09:01→20:08)
[2018-02-20] MEDS: Acetaminophen 325 MG TABLET PO PRN ×2 (10:35→20:08)
[2018-02-20] MEDS: Isosorbide MONOnitrate (24 HR) 30 MG TAB.ER.24H PO SCH (10:36)
[2018-02-20] MEDS ORDERED: Insulin LISPRO 300 UNITS/3 ML VIAL SQ SCH (21:00)
[2018-02-20] MEDS ORDERED: Loratadine 10 MG TABLET PO SCH (21:00)
[2018-02-21] MEDS: Heparin 25,000 UNIT/500 ML D5W 25,000 UNIT/500 ML BAG IVC SCH (00:11)
[2018-02-21] MEDS ORDERED: Melatonin 3 MG TABLET PO ONE (00:28)
[2018-02-21 07:57] VITALS: BP 138/83
[2018-02-21] MEDS: Insulin LISPRO 300 UNITS/3 ML VIAL SQ SCH (08:33)
[2018-02-21] MEDS ORDERED: Verapamil ER (24 HR) 180 MG TABLET.ER PO SCH (09:00)
[2018-02-21] MEDS ORDERED: Fluticasone Propionate Nasal 50 MCG/SPRAY BOTTLE NS SCH (09:00)
[2018-02-21] MEDS ORDERED: Fish Oil 1,000 Mg Softgel PO SCH (09:00)
[2018-02-21] MEDS ORDERED: Aspirin 81 MG TAB.CHEW PO SCH (09:00)
[2018-02-21] MEDS ORDERED: Furosemide 20 MG TABLET PO SCH (09:00)
[2018-02-21] MEDS: Isosorbide MONOnitrate (24 HR) 30 MG TAB.ER.24H PO SCH (09:49)
[2018-02-21] MEDS: Ranolazine 500 MG TAB.ER.12H PO SCH (09:49)
[2018-02-21] MEDS: Cholecalciferol (D-3) 1,000 UNIT TABLET PO SCH (09:50)
[2018-02-21] MEDS: Magnesium Oxide 400 MG TABLET PO SCH (09:50)
[2018-02-21] MEDS: Budesonide/Formoterol 80/4.5 MDI IH SCH (10:34)
--- NOTE | 2018-02-21 10:39 | Discharge Summary ---
- NOTES TO OUTPATIENT PROVIDER Notes to Outpatient Provider: Admitted with stable angina. Increase long-acting nitrate dose as per recommendations of cardiology. Chest pain subsided. Patient has had a recent [facility] in November 2017 showing nonobstructive disease with patent stents 3. Instructed to follow-up with PCP in one week. No pending studies. Orders not resulted at time of discharge: Pending orders 02/19/18 23:11 ECG 12 lead ECG [ECG] Stat 02/21/18 13:15 Heparin anti-factor XA UFH [COAG] Timed Date of Encounter: 02/21/18 Time of Encounter: 10:36 - Discharge Diagnosis (1) Unstable angina Priority: Primary Status: Suspected Assessment and Plan: Presented with unstable angina. No EKG changes concerning for ischemia Serial troponins negative [facility] 11/20 showing nonobstructive disease with 3 patent stent Increased Imdur to 90 mg daily and chest pain resolved Continues to be without chest pain this morning and hemodynamically stable without events on telemetry Being discharged home and instructed to follow-up with PCP in one week. 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 Lacey is a 62 year old female see assessment and plan Discharge discussed with: patient Time spent discussing smoking cessation with patient: 3 to 10 minutes - Time Spent with Patient Total time spent providing and/or coordinating discharge services: Less than 30 minutes - Discharge Medications Prescriptions: Isosorbide MONOnitrate (24 HR) [Imdur] 90 mg PO DAILY 30 Days #90 tab.er.24h Home Medications: Acetaminophen [Tylenol] 650 mg PO Q6HR PRN 06/12/17 [History] Albuterol Sulfate [Albuterol Inhaler] 2 puff IH TID PRN 06/12/17 [History] Atorvastatin Calcium [Lipitor] 20 mg PO Q48H 06/12/17 [History] Biotin 1 tab PO DAILY 06/12/17 [History] Cholecalciferol (D-3) [Vitamin D] 50,000 unit PO MO 06/12/17 [History] Clopidogrel [Plavix] 75 mg PO DAILY 06/12/17 [History] Fluticasone Propionate Nasal [Flonase] 1 spr NS DAILY 06/12/17 [History] Furosemide [Lasix] 20 mg PO DAILY 06/12/17 [History] Glimepiride [Amaryl] 2 mg PO 0800 06/12/17 [History] Loperamide [Imodium] 2 mg PO AD PRN MDD 6 TAB/24H 06/12/17 [History] Losartan [Cozaar] 25 mg PO DAILY 06/12/17 [History] Metformin HCl [Fortamet] 1,000 mg PO BID 06/12/17 [History] Mometasone/Formoterol [Dulera 100 Mcg/5 Mcg Inhaler] 2 puff IH DAILY 06/12/17 [History] Nitroglycerin [Nitrostat] 0.4 mg SL Q5-6MIN PRN 06/12/17 [History] Flomaton-3/Dha/Epa/Fish Oil [Fish Oil 1,000 mg Softgel] 1 cap PO DAILY 06/12/17 [History] Omeprazole 20 mg PO DAILY 06/12/17 [History] Potassium Chloride [K-Tab ER] 40 meq PO DAILY 06/12/17 [History] Triamterene/Hydrochlorothiazid [Triamterene-Hctz 75-50 mg Tab] 1.5 tab PO DAILY 06/12/17 [History] Ubidecarenone [Coenzyme Q-10] 100 mg PO DAILY 06/12/17 [History] Verapamil HCl [Verelan Pm] 200 mg PO DAILY 06/12/17 [History] Aspirin 81 mg PO DAILY 02/19/18 [History] Levocetirizine Dihydrochloride [Allergy Relief] 5 mg PO HS 02/19/18 [History] Ranolazine [Ranexa] 500 mg PO BID 02/20/18 [History] Isosorbide MONOnitrate (24 HR) [Imdur] 90 mg PO DAILY 30 Days #90 tab.er.24h 02/21/18 [Rx] Allergies/Adverse Reactions: Allergy/AdvReac Type Severity Reaction Status Date / Time metoprolol Allergy Difficulty Verified 11/19/17 14:38 Breathing morphine Allergy Swelling Verified 11/19/17 14:38 of Lip/Tongue/Throat propoxyphene [From Darvon] Allergy Itching Verified 11/19/17 14:38 Sulfa (Sulfonamide Allergy Blister Verified 11/19/17 14:38 Antibiotics) adhesive tape AdvReac Itching Verified 06/12/17 09:13 Date of admission: 02/19/18 20:19 Discharging clinician: Bertrand Olmstead Anticipated date of discharge: 02/21/18 - Constitutional Vitals: Temp Pulse Resp BP Pulse Ox 97.5 F L 64 12 138/83 97 02/21/18 07:52 02/21/18 07:52 02/21/18 07:52 02/21/18 07:52 02/21/18 07:52 General appearance: Present: cooperative, A&O X 3, pleasant, no acute distress Exam: General: Alert and oriented. No distress Skin:Normal color, no rash, no lesions. HEENT: PERRLA Cardiovascular: RRR, Normal S1 & S2, no rubs, murmurs or gallops. No JVD Lungs:Normal breath sounds, no wheezes or crackles. Chest expansion symmetrical, adequate rise and fall. Mild tenderness to palpation Abdomen:Soft, non-tender, no rigidity. Extremities:No deformity, tenderness, or clubbing. Non pitting edema noted to bilateral lower extremities. Neurological:Normal cognition and motor skills. Pulses:Carotid and radial pulses normal +2. Rest of the physical exam is non contributory. - Patient Status Disposition: Home, Self-Care Condition: Fair Functional capacity at discharge: independent ambulation Overall status at discharge: patient is back to baseline - Discharge Instructions Instructions: Chest Pain (DC) Follow Up With: Kimberly Tam [facility] [Advanced Practice Nurse] - (hospital follow up has been requested. ) - Diet and Activity Activity: increase activity as tolerated, resume usual activities as tolerated Diet: diabetic diet, low fat, low cholesterol, low salt diet
--- NOTE | 2018-02-22 17:55 | Electrocardiograph Report ---
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
== END 2018-02-21 12:19 | disposition home or self-care (01) ==
LOC: 3BNU
PROVIDERS: ADMIT Internal Medicine; ATTEND Internal Medicine

== ENCOUNTER 2021-05-23 13:24 | Observation (INO) ==
[2021-05-23 14:26] LABS: Basophils # 0.1 K/mcL (0.0-0.2); Basophils % 1.1 %; Eosinophils # 0.1 K/mcL (0.0-0.6); Eosinophils % 1.6 %; Hematocrit 40.8 % (35.3-44.9); Hemoglobin 13.7 g/dL (11.5-15.4); Immature Granulocytes % 0.6 % (0-4); Lymphocytes # 1.7 K/mcL (0.6-4.6); Lymphocytes % 19.7 %; Mean Corpuscular HGB Conc 33.6 g/dL (31.6-35.5); Mean Corpuscular Hemoglobin 28.4 pg (28.0-33.3); Mean Corpuscular Volume 84.6 fL (83.0-100.0); Mean Platelet Volume 10.6 fL (9.4-12.4); Monocytes # 0.5 K/mcL (0.0-1.3); Monocytes % 5.8 %; Neutrophils # 6.3 K/mcL (1.6-8.9); Platelet Count 306 K/mcL (140-400); Red Blood Count 4.82 M/mcL (3.82-4.97); Red Cell Distribution Width 14.4 % (11.5-14.5); Segmented Neutrophils % 71.2 %; White Blood Count 8.8 K/mcL (4.3-11.1)
[2021-05-23 15:04] LABS: BUN/Creatinine Ratio 22 (6-26); Blood Urea Nitrogen 27 mg/dL (8-23); Calcium 10.5 mg/dL (8.6-10.3); Carbon Dioxide 26 mEq/L (23-29); Chloride 92 mEq/L (98-107); Glucose 114 mg/dL (70-105); Osmolality,Calculated 286 (280-300); Potassium 3.2 mEq/L (3.5-5.1); Sodium 135 mEq/L (136-145); Troponin I < 0.03 ng/mL (< 0.04); eGFR For African Americans 52 (> 60); eGFR For Non-African Americans 43 (> 60)
[2021-05-23] MEDS ORDERED: Potassium Chloride Elixir 20 MEQ/15 ML UDC PO ONE ×2 (16:45→18:00)
[2021-05-23] MEDS ORDERED: Ondansetron 4 MG/2 ML VIAL IVP PRN (17:29)
[2021-05-23] MEDS ORDERED: Nitroglycerin 0.4 MG TAB.SUBL SL PRN (17:29)
[2021-05-23] MEDS ORDERED: Perflutren Lipid Microsphere 1.3 ML in 0.9 % Sodium Chloride 8.7 ML IVP PRN (17:29)
[2021-05-23] MEDS ORDERED: Naloxone 0.4 MG/ML INJ IVP PRN (17:36)
[2021-05-23] MEDS ORDERED: Dextrose Gel 15 GM/37.5 ML TUBE PO PRN ×2 (17:43)
[2021-05-23] MEDS ORDERED: D5% in Water 1,000 ML IVC PRN (17:43)
[2021-05-23] MEDS ORDERED: *HR* Dextrose 50 % in Water (Syg) 50 ML SYRINGE IVP PRN (17:43)
[2021-05-23] MEDS ORDERED: Isosorbide MONOnitrate (24 HR) 60 MG TAB.ER.24H PO SCH (17:45)
[2021-05-23] MEDS ORDERED: *HR* Heparin 5,000 UNIT/ML VIAL IVP PRN ×2 (17:51)
[2021-05-23] MEDS ORDERED: *HR* Heparin 5,000 UNIT/ML VIAL IVP ONE (17:51)
[2021-05-23] MEDS ORDERED: Heparin 25,000UNIT/250ML 1/2NS 25,000 UNIT/250 ML IV.SOLN IVC SCH ×2 (18:00→19:00)
[2021-05-23 18:19] LABS: Hematocrit 42.5 % (35.3-44.9); Hemoglobin 14.1 g/dL (11.5-15.4); Mean Corpuscular HGB Conc 33.2 g/dL (31.6-35.5); Mean Corpuscular Hemoglobin 28.3 pg (28.0-33.3); Mean Corpuscular Volume 85.3 fL (83.0-100.0); Mean Platelet Volume 10.7 fL (9.4-12.4); Platelet Count 313 K/mcL (140-400); Red Blood Count 4.98 M/mcL (3.82-4.97); Red Cell Distribution Width 14.4 % (11.5-14.5); White Blood Count 8.9 K/mcL (4.3-11.1)
[2021-05-23 18:39] LABS: Heparin anti-factor XA UFH 0.06 IU/mL (0.30-0.70); INR 0.9; Prothrombin Time 10.4 Seconds (9.4-12.1)
[2021-05-23] MEDS: Insulin LISPRO 300 UNITS/3 ML VIAL SUBQ SCH (18:39)
[2021-05-23] MEDS: Ranolazine 500 MG TAB.ER.12H PO SCH (19:39)
[2021-05-23] MEDS ORDERED: Furosemide 40 MG/4 ML VIAL IVP SCH (21:00)
[2021-05-23] MEDS: Verapamil ER (24 HR) 180 MG TABLET.ER PO SCH (22:14)
[2021-05-24 01:29] LABS: Basophils # 0.1 K/mcL (0.0-0.2); Eosinophils # 0.2 K/mcL (0.0-0.6); Hematocrit 38.5 % (35.3-44.9); Immature Granulocytes % 0.6 % (0-4); Lymphocytes # 2.1 K/mcL (0.6-4.6); Lymphocytes % 26.7 %; Mean Corpuscular HGB Conc 33.8 g/dL (31.6-35.5); Mean Corpuscular Volume 85.9 fL (83.0-100.0); Mean Platelet Volume 10.9 fL (9.4-12.4); Monocytes # 0.6 K/mcL (0.0-1.3); Monocytes % 7.1 %; Platelet Count 290 K/mcL (140-400); Red Blood Count 4.48 M/mcL (3.82-4.97); Red Cell Distribution Width 14.5 % (11.5-14.5); Segmented Neutrophils % 62.6 %
[2021-05-24 01:37] LABS: Prothrombin Time 11.1 Seconds (9.4-12.1)
[2021-05-24 01:41] LABS: Albumin 4.2 g/dL (3.5-5.7); Albumin/Globulin Ratio 1.7 (1.1-2.2); Bilirubin,Total 0.5 mg/dL (0.3-1.0); Globulin 2.5 g/dL (2.4-3.5); Magnesium 1.6 mg/dL (1.6-2.6); Potassium 2.9 mEq/L (3.5-5.1); Total Protein 6.7 g/dL (6.4-8.9)
[2021-05-24] MEDS ORDERED: Acetaminophen 325 MG TABLET PO ONE (02:07)
[2021-05-24] MEDS: Insulin LISPRO 300 UNITS/3 ML VIAL SUBQ SCH ×3 (07:48→17:27)
[2021-05-24] MEDS ORDERED: Aspirin 81 MG TAB.CHEW PO SCH (09:00)
[2021-05-24] MEDS ORDERED: Triamterene/HCTZ 75/50 mg TABLET PO SCH (09:00)
[2021-05-24] MEDS ORDERED: Isosorbide MONOnitrate (24 HR) 60 MG TAB.ER.24H PO ONE (12:30)
[2021-05-24] MEDS: Fluticasone Propionate Nasal 50 MCG/SPRAY BOTTLE NS SCH (13:25)
[2021-05-24] MEDS: Aspirin 81 MG TAB.CHEW PO SCH (13:25)
[2021-05-24] MEDS: Ranolazine 500 MG TAB.ER.12H PO SCH ×3 (13:25→20:39)
[2021-05-24] MEDS: Verapamil ER (24 HR) 180 MG TABLET.ER PO SCH (20:39)
[2021-05-25 06:09] LABS: BUN/Creatinine Ratio 18 (6-26); Blood Urea Nitrogen 19 mg/dL (8-23); Calcium 10.2 mg/dL (8.6-10.3); Carbon Dioxide 29 mEq/L (23-29); Chloride 97 mEq/L (98-107); Chol/HDL Ratio 4.7 (0-4.9); Cholesterol 221 mg/dL (< 200); Glucose 180 mg/dL (70-105); HDL Cholesterol 47 mg/dL (40-59); LDL Cholesterol,Calculated 110 mg/dL (< 100); Osmolality,Calculated 289 (280-300); Potassium 3.4 mEq/L (3.5-5.1); Sodium 136 mEq/L (136-145); Triglycerides 318 mg/dL (< 150); eGFR For African Americans > 60 (> 60); eGFR For Non-African Americans 52 (> 60)
[2021-05-25] MEDS: Ranolazine 500 MG TAB.ER.12H PO SCH ×3 (08:56→09:13)
[2021-05-25] MEDS: Aspirin 81 MG TAB.CHEW PO SCH (08:56)
[2021-05-25] MEDS: Fluticasone Propionate Nasal 50 MCG/SPRAY BOTTLE NS SCH (08:59)
[2021-05-25] MEDS ORDERED: Isosorbide MONOnitrate (24 HR) 60 MG TAB.ER.24H PO SCH (09:00)
[2021-05-25] MEDS: Insulin LISPRO 300 UNITS/3 ML VIAL SUBQ SCH (09:06)
[2021-05-25 09:33] LABS: Estimated Average Glucose 166 mg/dl; Hemoglobin A1C 7.4 %
[2021-05-25 10:36] VITALS: BP 154/88; PULSE 85; TEMP 97.6; O2SAT 94
== END 2021-05-25 13:47 | disposition home or self-care (01) ==
LOC: EMEROOARM 13:24 → 3BNU 13:24
PROVIDERS: ADMIT Internal Medicine; ATTEND Internal Medicine